=== PATIENT | female | born 1930 | race Caucasian/White ===

== ENCOUNTER 2016-06-10 15:06 | Observation (INO) | payer MEDICARE, OTHER ==
[~2016-06-10] VITALS: Ht 154.9 cm; Wt 65.0 kg
[~2016-06-10 15:06] MED LIST: ASPI325T PO; CERTTAB6 PO; ROBISYP6 PO; [UNRECOGNIZED DRUG - CODE] PO
--- NOTE | 2016-06-10 15:18 | PD ---
HPI Chief Complaint: dementia, left lower extremity pain Time Seen by Provider: 15:18 Travel History International Travel<30 days: No Contact w/Intl Traveler<30days: No Traveled to known affect area: No History of Present Illness HPI 85-year-old female was brought in from the correction with history of left lower extremity pain sudden onset. There is a questionable fall history. Patient has significant dementia where she is unable to give any reliable history. As per the correction note the son was called who insisted that patient should be brought to the emergency room to be checked out. By the time paramedics arrived patient had calmed down and would not really complaining of anything. In the ER she seems quite comfortable as well. Vital signs are stable. [facility] Past Medical History Narrative Medical List of her past medical, surgical, social and family history was reviewed from the nursing note. Blood Disorders: No Anxiety: No Depression: Yes Cancer: No Cardiovascular Problems: No Dementia: Yes Diminished Hearing: No Endocrine: No Genitourinary: Yes (Renal insufficiency.) Immune Disorder: No Musculoskeletal: Yes (History of Generalized weakness, History of falls.) Neurologic: Yes (Dementia, Multiple Sclerosis.) Psychiatric: Yes (Depression.) Reproductive: No Respiratory: Yes (Smokes) : 3 Para: 3 Past Surgical History Appendectomy: Yes Other Surgery: Yes (Appendectomy.) Social History Alcohol Use: Yes (OCC) Tobacco Use: Yes (OCC. WHEN SHE CAN GET THEM) Substance Use: No Allergies-Medications (Allergen,Severity, Reaction): Coded Allergies: Aricept (Verified Allergy, Severe, 06/10/16) Nonsteroidal Anti-Inflammatory Agts (Verified Allergy, Unknown, 06/10/16) Comments List of her allergies reviewed from the nursing note. Reported Meds & Prescriptions Reported Meds & Active Scripts Active Reported K-Tab (Potassium Chloride) 20 Meq Tab 20 Meq PO DAILY Lasix (Furosemide) 20 Mg Tab 20 Mg PO BID Ferrous Sulfate 325 Mg Tab 325 Mg PO BID Poly-Iron 150 Forte (Iron Polysaccharide [id number]) 150-25MG-1 Mcg Cap 1 Cap PO DAILY Levothyroxine (Levothyroxine Sodium) 25 Mcg Tab 25 Mcg PO DAILY Galantamine (Galantamine Hydrobromide) 12 Mg Tab 12 Mg PO BID Narrative Medication List of her home medications reviewed from the nursing note. Review of Systems ROS Limitations: Poor Historian Except as stated in HPI: all other systems reviewed are Neg Physical Exam Exam Limitations: Poor Historian Narrative GENERAL: Awake, dementia, elderly SKIN: Warm and dry. HEAD: Atraumatic. Normocephalic. EYES: Pupils equal and round. No scleral icterus. No injection or drainage. ENT: No nasal bleeding or discharge. Mucous membranes pink and moist. NECK: Trachea midline. No JVD. CARDIOVASCULAR: Regular rate and rhythm. No murmur appreciated. RESPIRATORY: No accessory muscle use. Clear to auscultation. Breath sounds equal bilaterally. GASTROINTESTINAL: Abdomen soft, non-tender, nondistended. Hepatic and splenic margins not palpable. MUSCULOSKELETAL: No obvious deformities. No clubbing. No cyanosis. No edema. Decreased range of motion at the left knee and hip joint. No obvious deformity , crepitus or swelling NEUROLOGICAL: Awake and dementia. No obvious cranial nerve deficits. Motor grossly within normal limits. Normal speech. PSYCHIATRIC: Appropriate mood and affect; insight and judgment normal. Data Data Last Documented VS Orders Electrocardiogram (06/10/16 15:19) Complete Blood Count With Diff (06/10/16 15:19) Comprehensive Metabolic Panel (06/10/16 15:19) Creatine Kinase (Cpk) (06/10/16 15:19) Prothrombin Time / Inr (Pt) (06/10/16 15:19) Troponin I (06/10/16 15:19) Thyroid Stimulating Hormone (06/10/16 15:19) Urinalysis - C+S If Indicated (06/10/16 15:19) Chest, Single Ap (06/10/16 15:19) Blood Glucose (06/10/16 15:19) Ecg Monitoring (06/10/16 15:19) Iv Access Insert/Monitor (06/10/16 15:19) Oximetry (06/10/16 15:19) Sodium Chloride 0.9% Flush (Ns Flush) (06/10/16 15:30) Hip, Uni(Ap&Lat) W Ap Pelvis (06/10/16 ) Knee, Complete (4vws) (06/10/16 ) Ct Brain W/O Iv Contrast(Rout) (06/10/16 ) ^ Straight Catheter (06/10/16 15:19) CKMB (06/10/16 16:00) CKMB% (06/10/16 16:00) Us Leg Venous Doppler (06/10/16 18:21) Sodium Chlorid 0.9% 500 Ml Inj (Ns 500 M (06/10/16 18:30) Admit Order (Ed Use Only) (06/10/16 ) Labs MDM Medical Decision Making Medical Screen Exam Complete: Yes Emergency Medical Condition: Yes Medical Record Reviewed: Yes Interpretation(s) Twelve-lead EKG was reviewed by me. Normal sinus rhythm, normal axis, nonspecific ST-T wave changes. Heart rate of 86 bpm. Differential Diagnosis Hip fracture, knee fracture, dementia, UTI Narrative Course 5:29 PM x-ray and CT scan were within normal limits. CBC shows some leukocytosis. UA is within normal limit. Chemistry is pending. Case has been signed over to the oncoming ER physician. In my opinion if the chemistry is within normal limit patient can be discharged back to the correction. Procedures EKG Prior to Arrival: Yes Brett James MD Jun 10, 2016 15:18 Urine Nitrite NEG Urine Bilirubin NEG Urine Urobilinogen LESS THAN 2.0 MG/DL Urine Leukocyte Esterase NEG Urine RBC 1 /hpf Urine WBC 1 /hpf Urine Squamous Epithelial <1 /hpf Cells Urine Hyaline Casts 4 /lpf Microscopic Urinalysis Comment CATH-CULT NOT IND White Blood Count 13.8 TH/MM3 Red Blood Count 4.27 MIL/MM3 Hemoglobin 10.0 GM/DL Hematocrit 31.9 % Mean Corpuscular Volume 74.9 FL Mean Corpuscular Hemoglobin 23.5 PG Mean Corpuscular Hemoglobin 31.4 % Concent Red Cell Distribution Width 20.9 % Platelet Count 370 TH/MM3 Mean Platelet Volume 7.9 FL Neutrophils (%) (Auto) 74.5 % Lymphocytes (%) (Auto) 15.1 % Monocytes (%) (Auto) 9.9 % Eosinophils (%) (Auto) 0.2 % Basophils (%) (Auto) 0.3 % Neutrophils # (Auto) 10.3 TH/MM3 Lymphocytes # (Auto) 2.1 TH/MM3 Monocytes # (Auto) 1.4 TH/MM3 Eosinophils # (Auto) 0.0 TH/MM3 Basophils # (Auto) 0.0 TH/MM3 CBC Comment AUTO DIFF Differential Comment AUTO DIFF CONFIRMED Platelet Estimate NORMAL Platelet Morphology Comment NORMAL Target Cells 1+ Ovalocytes 1+ Prothrombin Time 10.7 SEC Prothromb Time International 1.0 RATIO Ratio MDM Medical Decision Making Medical Screen Exam Complete: Yes Emergency Medical Condition: Yes Medical Record Reviewed: Yes Interpretation(s) Twelve-lead EKG was reviewed by me. Normal sinus rhythm, normal axis, nonspecific ST-T wave changes. Heart rate of 86 bpm. Differential Diagnosis Hip fracture, knee fracture, dementia, UTI Narrative Course 5:29 PM x-ray and CT scan were within normal limits. CBC shows some leukocytosis. UA is within normal limit. Chemistry is pending. Case has been signed over to the oncoming ER physician. In my opinion if the chemistries within normal limit patient can be discharged back to the correction. Procedures EKG Prior to Arrival: Yes Brett James MD Jun 10, 2016 15:18
[2016-06-10] MEDS ORDERED: SODIUM CHLORIDE 0.9% FLUSH 5 ML FLUSH IVF PRN (15:30)
[2016-06-10 15:33] VITALS: BP 145/69; PULSE 90; RESP 16; RESP 18; TEMP 98.1; O2SAT 97
[2016-06-10] MEDS ORDERED: GALA12TA PO (15:47)
[2016-06-10] MEDS ORDERED: FURO1TAB62 PO (15:47)
[2016-06-10] MEDS ORDERED: FERR325T PO (15:47)
[2016-06-10] MEDS ORDERED: POTA1TAB4 PO (15:47)
[2016-06-10] MEDS ORDERED: LEVO25TA4 PO (15:47)
[2016-06-10] MEDS ORDERED: POLY150C2 PO (15:47)
--- NOTE | 2016-06-10 16:00 | RADRPT ---
EXAM DATE/TIME: 06/10/2016 15:43 [facility] COMPARISON: No previous studies available for comparison. INDICATIONS : Left hip pain, no known trauma per [facility] MEDICAL HISTORY : dementia SURGICAL HISTORY : None. ENCOUNTER: Initial ACUITY: 1 day PAIN SCORE: Non-responsive. LOCATION: Left hip FINDINGS: Examination of the left hip was performed with AP Pelvis. The primary and secondary trabecular patte rn of the femoral neck is intact. The hip joint is of normal width without significant sclerosis or bony hypertrophy. The acetabulum is grossly intact. CONCLUSION: Unremarkable examination of the left hip. Cem Patton MD on June 10, 2016 at 15:59 Board Certified Radiologist. This report was verified electronically.
--- NOTE | 2016-06-10 16:01 | RADRPT ---
EXAM DATE/TIME: 06/10/2016 15:47 [facility] COMPARISON: No previous studies available for comparison. INDICATIONS : Left knee pain, no known trauma per [facility] MEDICAL HISTORY : dementia SURGICAL HISTORY : None. ENCOUNTER: Initial ACUITY: 1 day PAIN SCORE: Non-responsive. LOCATION: Left knee FINDINGS: Four view examination of the left knee demonstrates no evidence of fracture or dislocation. Bony min eralization is normal. Extensive chondrocalcinosis. The articular surfaces are intact. The suprapate llar soft tissues have a normal configuration. CONCLUSION: Extensive chondrocalcinosis of the knee with small joint effusion. Cem Patton MD on June 10, 2016 at 15:59 Board Certified Radiologist. This report was verified electronically.
--- NOTE | 2016-06-10 16:03 | RADRPT ---
EXAM DATE/TIME: 06/10/2016 15:43 [facility] COMPARISON: CHEST SINGLE AP, October 22, 2014, 22:49. INDICATIONS : Chest pain, no known trauma per [facility] MEDICAL HISTORY : dementia SURGICAL HISTORY : None. ENCOUNTER: Initial ACUITY: 1 day PAIN SCORE: Non-responsive. LOCATION: Bilateral chest FINDINGS: A single view of the chest demonstrates the lungs to be symmetrically aerated without evidence of mas s, infiltrate or effusion. The cardiomediastinal contours are unremarkable. Osseous structures are intact. CONCLUSION: Normal examination. Cem Patton MD on June 10, 2016 at 16:01 Board Certified Radiologist. This report was verified electronically.
--- NOTE | 2016-06-10 16:16 | RADRPT ---
EXAM DATE/TIME: 06/10/2016 15:43 [facility] COMPARISON: No previous studies available for comparison. INDICATIONS : Possible fall today with altered mental status. RADIATION DOSE: 56.35 CTDIvol (mGy) MEDICAL HISTORY : Dementia. Renal insufficiency, chronic. SURGICAL HISTORY : Appendectomy. ENCOUNTER: Initial ACUITY: 1 day PAIN SCALE: 5/10 LOCATION: cranial TECHNIQUE: Multiple contiguous axial images were obtained of the head. Using automated exposure control and adj ustment of the mA and/or kV according to patient size, radiation dose was kept as low as reasonably a chievable to obtain optimal diagnostic quality images. FINDINGS: There is marked central and cortical atrophy with dilatation of ventricular and sulcal spaces. The ve ntricles are slightly more prominent than they were in January. There is no parenchymal hemorrhage, acute infarction or mass lesion identified. There are no extra-axial fluid collections appreciated. The posterior fossa is unremarkable with midline fourth ventricle. The portion of the orbits and pa ranasal sinuses visualized are unremarkable. CONCLUSION: Marked atrophy with ventricular enlargement. The ventricles are slightly larger than they were on Jan. Marked CSF prominence. Cem Patton MD on June 10, 2016 at 16:08 Board Certified Radiologist. This report was verified electronically.
[2016-06-10 16:40] LABS: AUTOMATED NEUTROPHIL # 10.3 TH/MM3 (1.8-7.7); BASOPHIL % 0.3 % (0.0-2.0); EOSINOPHIL % 0.2 % (0.0-4.0); HEMATOCRIT 31.9 % (35.0-46.0); LYMPH % 15.1 % (9.0-44.0); LYMPHOCYTE # 2.1 TH/MM3 (1.0-4.8); MEAN CELL VOLUME 74.9 FL (80.0-100.0); MEAN CORPUSCULAR HEMOGLOBIN 23.5 PG (27.0-34.0); MEAN CORPUSCULAR HGB CONC 31.4 % (32.0-36.0); MONO % 9.9 % (0.0-8.0); NEUT % 74.5 % (16.0-70.0); PLATELET COUNT 370 TH/MM3 (150-450); RED BLOOD COUNT 4.27 MIL/MM3 (4.00-5.30); RED CELL DISTRIBUTION WIDTH 20.9 % (11.6-17.2); WHITE BLOOD COUNT 13.8 TH/MM3 (4.0-11.0)
[2016-06-10 16:46] LABS: HEMO FLAGS AUTO DIFF
[2016-06-10 16:51] LABS: BLOOD, URINE NEG (NEG); COMMENT (UR) CATH-CULT NOT IND; CULTURE IF INDICATED CATH CULTURE NOT IND; GLUCOSE,URINE NEG (NEG); HYALINE CAST, URINE 4 /lpf (RARE); KETONE, URINE NEG (NEG); NITRITE,URINE NEG (NEG); PH, URINE 5.5 (5.0-8.5); SQUAMOUS EPITHELIAL CELL URINE <1 /hpf (0-5); URINE COLOR YELLOW (YELLW/STRAW)
[2016-06-10 16:58] LABS: PROTHROMBIN TIME - PATIENT 10.7 SEC (9.8-11.6)
[2016-06-10 17:13] LABS: OVALOCYTES 1+ (NORMAL); PLATELET ESTIMATE SMEAR NORMAL (NORMAL); PLATELET MORPHOLOGY NORMAL (NORMAL); TARGET CELLS 1+ (NORMAL)
[2016-06-10 17:14] LABS: SCAN/DIFF AUTO DIFF CONFIRMED
[2016-06-10 17:28] LABS: ALKALINE PHOSPHATASE 150 U/L (45-117); ALT (GPT) 39 U/L (10-53); ANION GAP 9 MEQ/L (5-15); AST (GOT) 68 U/L (15-37); BICARBONATE 25.9 MEQ/L (21.0-32.0); BLOOD UREA NITROGEN 28 MG/DL (7-18); CHLORIDE 102 MEQ/L (98-107); CREATINE KINASE 936 U/L (26-192); GLOMERULAR FILTRATION RATE 41 ML/MIN (>89); SODIUM (NA) 137 MEQ/L (136-145); TOTAL BILIRUBIN ADULT 0.7 MG/DL (0.2-1.0)
[2016-06-10 17:30] LABS: POTASSIUM 4.3 MEQ/L (3.5-5.1)
[2016-06-10 17:42] LABS: CKMB 8.2 NG/ML (0.5-3.6)
[2016-06-10 18:00] VITALS: BP 132/55; PULSE 18; RESP 15; O2SAT 95
--- NOTE | 2016-06-10 18:21 | PD ---
Data Data Last Documented VS Vital Signs Date Time Temp Pulse Resp B/P Pulse Ox O2 Delivery O2 Flow Rate FiO2 06/10/16 15:33 98.1 90 18 145/69 97 Room Air Orders Electrocardiogram (06/10/16 15:19) Complete Blood Count With Diff (06/10/16 15:19) Comprehensive Metabolic Panel (06/10/16 15:19) Creatine Kinase (Cpk) (06/10/16 15:19) Prothrombin Time / Inr (Pt) (06/10/16 15:19) Troponin I (06/10/16 15:19) Thyroid Stimulating Hormone (06/10/16 15:19) Urinalysis - C+S If Indicated (06/10/16 15:19) Chest, Single Ap (06/10/16 15:19) Blood Glucose (06/10/16 15:19) Ecg Monitoring (06/10/16 15:19) Iv Access Insert/Monitor (06/10/16 15:19) Oximetry (06/10/16 15:19) Sodium Chloride 0.9% Flush (Ns Flush) (06/10/16 15:30) Hip, Uni(Ap&Lat) W Ap Pelvis (06/10/16 ) Knee, Complete (4vws) (06/10/16 ) Ct Brain W/O Iv Contrast(Rout) (06/10/16 ) ^ Straight Catheter (06/10/16 15:19) CKMB (06/10/16 16:00) CKMB% (06/10/16 16:00) Labs Laboratory Tests Test 06/10/16 06/10/16 14:05 16:00 Urine Color YELLOW Urine Turbidity CLEAR Urine pH 5.5 Urine Specific [place] 1.014 Urine Protein NEG mg/dL Urine Glucose (UA) NEG mg/dL Urine Ketones NEG mg/dL Urine Occult Blood NEG Urine Nitrite NEG Urine Bilirubin NEG Urine Urobilinogen LESS THAN 2.0 MG/DL Urine Leukocyte Esterase NEG Urine RBC 1 /hpf Urine WBC 1 /hpf Urine Squamous Epithelial <1 /hpf Cells Urine Hyaline Casts 4 /lpf Microscopic Urinalysis Comment CATH-CULT NOT IND White Blood Count 13.8 TH/MM3 Red Blood Count 4.27 MIL/MM3 Hemoglobin 10.0 GM/DL Hematocrit 31.9 % Mean Corpuscular Volume 74.9 FL Mean Corpuscular Hemoglobin 23.5 PG Mean Corpuscular Hemoglobin 31.4 % Concent Red Cell Distribution Width 20.9 % Platelet Count 370 TH/MM3 Mean Platelet Volume 7.9 FL Neutrophils (%) (Auto) 74.5 % Lymphocytes (%) (Auto) 15.1 % Monocytes (%) (Auto) 9.9 % Eosinophils (%) (Auto) 0.2 % Basophils (%) (Auto) 0.3 % Neutrophils # (Auto) 10.3 TH/MM3 Lymphocytes # (Auto) 2.1 TH/MM3 Monocytes # (Auto) 1.4 TH/MM3 Eosinophils # (Auto) 0.0 TH/MM3 Basophils # (Auto) 0.0 TH/MM3 CBC Comment AUTO DIFF Differential Comment AUTO DIFF CONFIRMED Platelet Estimate NORMAL Platelet Morphology Comment NORMAL Target Cells 1+ Ovalocytes 1+ Prothrombin Time 10.7 SEC Prothromb Time International 1.0 RATIO Ratio Sodium Level 137 MEQ/L Potassium Level 4.3 MEQ/L Chloride Level 102 MEQ/L Carbon Dioxide Level 25.9 MEQ/L Anion Gap 9 MEQ/L Blood Urea Nitrogen 28 MG/DL Creatinine 1.25 MG/DL Estimat Glomerular Filtration 41 ML/MIN Rate Random Glucose 94 MG/DL Calcium Level 8.7 MG/DL Total Bilirubin 0.7 MG/DL Aspartate Amino Transf 68 U/L (AST/SGOT) Alanine Aminotransferase 39 U/L (ALT/SGPT) Alkaline Phosphatase 150 U/L Total Creatine Kinase 936 U/L Creatine Kinase MB 8.2 NG/ML Creatine Kinase MB % 0.9 % Troponin I LESS THAN 0.02 NG/ML Total Protein 8.0 GM/DL Albumin 2.8 GM/DL Thyroid Stimulating Hormone 5.220 uIU/ML 3rd Gen [facility] Supervised Visit with TIERA: No Narrative Course Patient care assumed from Dr. James at 1930, patient is an 85-year-old female with a history of dementia use complaining of right lower extremity pain. On arrival to the emergency department the pain had apparently resolved. Patient on my evaluation states her right leg hurts a little bit but she is unable to identify exactly where. She was offered pain medicine and declined. Patient has had x-ray of her right hip right knee which other than the right knee effusion shows no acute abnormality. On physical exam her soft compartments are soft pulse motor and sensory intact and there is no obvious skin breakdown. Patient did have a wound dressing on her right lower extremity but I see no pressure ulcer developing at this time. Labs reviewed and a CK is just under 1000 with a creatinine of 1.2. Patient fairly demented. Her son is here with her and discussed the results and recommendations for admission for IV fluid resuscitation and monitoring of kidney levels and he is agreeable. Diagnosis Primary Impression: Rhabdomyolysis Qualified Code: M62.82 - Non-traumatic rhabdomyolysis Additional Impressions: Right leg pain Dementia Admitting Information Admitting Physician Requests: Observation Condition: Stable [place] Valerio MD Jun 10, 2016 18:21
[2016-06-10] MEDS ORDERED: SODIUM CHLORID 0.9% 500 ML INJ 500 ML IV ONE (18:30)
[2016-06-10 19:00] VITALS: BP 110/54; PULSE 95; RESP 15; RESP 16; O2SAT 96; O2SAT 98
[2016-06-10] MEDS ORDERED: NALOXONE HCL 0.4 MG/ML AMP IV PRN (19:45)
[2016-06-10] MEDS ORDERED: SODIUM CHLORIDE 0.9% FLUSH 5 ML FLUSH FLUSH PRN (19:45)
--- NOTE | 2016-06-10 20:51 | RADRPT ---
EXAM DATE/TIME: 06/10/2016 19:48 [facility] COMPARISON: No previous studies available for comparison. INDICATIONS : Right leg swelling. MEDICAL HISTORY : Congestive heart failure. Alzheimer's. Dementia. SURGICAL HISTORY : Appendectomy. ENCOUNTER: Initial ACUITY: 1 day PAIN SCORE: 10/10 LOCATION: Right leg. TECHNIQUE: Venous ultrasound of the leg was performed from the inguinal ligament to the proximal calf. Real-medina e, color Doppler and spectral tracing, compression and augmentation techniques were used. FINDINGS: There is normal compressibility of the deep venous system from the inguinal region to the proximal ca lf. No echogenic clot is seen in the lumen of the common femoral, femoral, popliteal, and posterior tibial veins. There is a normal response of the venous system to proximal and distal augmentation an d respiration. Fluid collection is identified in the right popliteal fossa measuring 2.3 x 1.2 x 0.8 cm. CONCLUSION: No evidence DVT. Hall cyst. Jose Suarez MD on June 10, 2016 at 20:49 Board Certified Radiologist. This report was verified electronically.
[2016-06-10] MEDS: SODIUM CHLORIDE 0.9% FLUSH 5 ML FLUSH FLUSH SCH (21:05)
[2016-06-10 23:36] VITALS: BP 131/59; PULSE 93; RESP 18; TEMP 97.1; O2SAT 93
--- NOTE | 2016-06-11 00:15 | HHI.HP ---
[facility] Cesar Moe M.D. Admission Diagnosis Rhabdomyolysis. Diagnoses: Chief Complaint: fall at home Travel History International Travel<30 Days: No Contact w/Intl Traveler <30 Da: No Traveled to Known Affected Are: No History of Present Illness History taken form Patient and ED physician. 85 y/o female presented from a local custodial after a fall at the nursing facility. Patient has dementia and is only oriented to self, does not know she is in the hospital, or the year she was born. She states she does not remember falling. She denies all questions, even regarding medical history. ROS is limited due to dementia. According to the EMR patient has a history of dementia, MS, hypothyroidism, CKD, and depression. Son is POA is not present at bedside. Last admission in November 04 she patient was a DO NOT RESUSCITATE, will need to clarify with POA, there was no state DO NOT RESUSCITATE present from the nursing facility. Review of Systems ROS Limitations: Poor Historian (dementia) Past Family Social History Past Medical History Dementia Multiple sclerosis CKD Depression Hypothyroidism Past Surgical History Appendectomy Reported Medications Reported Meds & Active Scripts Active Reported K-Tab (Potassium Chloride) 20 Meq Tab 20 Meq PO DAILY Lasix (Furosemide) 20 Mg Tab 20 Mg PO BID Ferrous Sulfate 325 Mg Tab 325 Mg PO BID Poly-Iron 150 Forte (Iron Polysaccharide [id number]) 150-25MG-1 Mcg Cap 1 Cap PO DAILY Levothyroxine (Levothyroxine Sodium) 25 Mcg Tab 25 Mcg PO DAILY Galantamine (Galantamine Hydrobromide) 12 Mg Tab 12 Mg PO BID Allergies: Coded Allergies: Aricept (Verified Allergy, Severe, 06/10/16) Nonsteroidal Anti-Inflammatory Agts (Verified Allergy, Unknown, 06/10/16) Active Ordered Medications Current Medications Medications (Trade) Dose Ordered Sig/Karen Route Start Time Stop Time Status Last Admin (NS Flush) 2 ml UNSCH PRN IVF 06/10/16 15:30 06/10/16 19:18 (NS Flush) 2 ml UNSCH PRN FLUSH 06/10/16 19:45 (NS Flush) 2 ml BID FLUSH 06/10/16 21:00 06/10/16 21:05 (Narcan Inj) 0.4 mg UNSCH PRN IV 06/10/16 19:45 Family History Patient does not know family history Social History Per EMR: Patient does not smoke or drink Physical Exam Vital Signs Vital Signs Date Time Temp Pulse Resp B/P Pulse Ox O2 Delivery O2 Flow Rate FiO2 06/10/16 23:36 97.1 93 18 131/59 93 06/10/16 19:00 90 16 06/10/16 19:00 16 98 Room Air 06/10/16 19:00 95 15 110/54 96 Room Air 06/10/16 18:00 18 15 132/55 95 Room Air 06/10/16 15:33 98.1 90 18 145/69 97 Room Air 06/10/16 15:33 98.1 90 18 145/69 97 Room Air 06/10/16 15:33 98.1 90 16 145/69 97 Physical Exam GENERAL: This is a well-nourished, well-developed patient, in no apparent distress. Poor historian due to dementia SKIN: No rashes, ecchymoses or lesions. Cool and dry. HEAD: Atraumatic. Normocephalic. EYES: Pupils equal round and reactive. Extraocular motions intact. ENT: Nose without bleeding, purulent drainage or septal hematoma. Airway patent. NECK: Trachea midline. No JVD or lymphadenopathy CARDIOVASCULAR: Regular rate and rhythm without murmurs, gallops, or rubs. RESPIRATORY: Clear to auscultation. Breath sounds equal bilaterally. No wheezes , rales, or rhonchi. GASTROINTESTINAL: Abdomen soft, non-tender, nondistended. No hepato-splenomegaly , or palpable masses. No guarding. MUSCULOSKELETAL: Extremities without clubbing, cyanosis, or edema. No joint tenderness, effusion, or edema noted. No calf tenderness. NEUROLOGICAL: Awake and confused Motor and sensory grossly within normal limits. Normal speech. Laboratory Laboratory Tests Test 06/10/16 06/10/16 14:05 16:00 Urine Color YELLOW Urine Turbidity CLEAR Urine pH 5.5 Urine Specific [place] 1.014 Urine Protein NEG Urine Glucose (UA) NEG Urine Ketones NEG Urine Occult Blood NEG Urine Nitrite NEG Urine Bilirubin NEG Urine Urobilinogen LESS THAN 2.0 Urine Leukocyte Esterase NEG Urine RBC 1 Urine WBC 1 Urine Squamous Epithelial <1 Cells Urine Hyaline Casts 4 Microscopic Urinalysis Comment CATH-CULT NOT IND White Blood Count 13.8 Red Blood Count 4.27 Hemoglobin 10.0 Hematocrit 31.9 Mean Corpuscular Volume 74.9 Mean Corpuscular Hemoglobin 23.5 Mean Corpuscular Hemoglobin 31.4 Concent Red Cell Distribution Width 20.9 Platelet Count 370 Mean Platelet Volume 7.9 Neutrophils (%) (Auto) 74.5 Lymphocytes (%) (Auto) 15.1 Monocytes (%) (Auto) 9.9 Eosinophils (%) (Auto) 0.2 Basophils (%) (Auto) 0.3 Neutrophils # (Auto) 10.3 Lymphocytes # (Auto) 2.1 Monocytes # (Auto) 1.4 Eosinophils # (Auto) 0.0 Basophils # (Auto) 0.0 CBC Comment AUTO DIFF Differential Comment AUTO DIFF CONFIRMED Platelet Estimate NORMAL Platelet Morphology Comment NORMAL Target Cells 1+ Ovalocytes 1+ Prothrombin Time 10.7 Prothromb Time International 1.0 Ratio Sodium Level 137 Potassium Level 4.3 Chloride Level 102 Carbon Dioxide Level 25.9 Anion Gap 9 Blood Urea Nitrogen 28 Creatinine 1.25 Estimat Glomerular Filtration 41 Rate Random Glucose 94 Calcium Level 8.7 Total Bilirubin 0.7 Aspartate Amino Transf 68 (AST/SGOT) Alanine Aminotransferase 39 (ALT/SGPT) Alkaline Phosphatase 150 Total Creatine Kinase 936 Creatine Kinase MB 8.2 Creatine Kinase MB % 0.9 Troponin I LESS THAN 0.02 Total Protein 8.0 Albumin 2.8 Free Thyroxine 1.17 Thyroid Stimulating Hormone 5.220 3rd Gen Result Diagram: 06/10/16 1600 06/10/16 1600 Imaging Last Impressions Lower Extremity Ultrasound 06/10/16 1821 Signed Impressions: Service Date/Time: Friday, June 10, 2016 19:48 - CONCLUSION: No evidence DVT. Hall cyst. Jose Suarez MD Chest X-Ray 06/10/16 1519 Signed Impressions: Service Date/Time: Friday, June 10, 2016 15:43 - CONCLUSION: Normal examination. Cem Patton MD Knee X-Ray 06/10/16 0000 Signed Impressions: Service Date/Time: Friday, June 10, 2016 15:47 - CONCLUSION: Extensive chondrocalcinosis of the knee with small joint effusion. Cem Patton MD Hip and Pelvis X-Ray 06/10/16 0000 Signed Impressions: Service Date/Time: Friday, June 10, 2016 15:43 - CONCLUSION: Unremarkable examination of the left hip. Cem Patton MD Head CT 06/10/16 0000 Signed Impressions: Service Date/Time: Friday, June 10, 2016 15:43 - CONCLUSION: Marked atrophy with ventricular enlargement. The ventricles are slightly larger than they were on January 2016. Marked CSF prominence. Cem Patton MD Assessment and Plan Problem List: (1) Rhabdomyolysis ICD Code: M62.82 Status: Acute (2) ANTONIO (acute kidney injury) ICD Code: N17.9 Status: Acute (3) Dementia ICD Code: F03.90 Status: Chronic Assessment and Plan 85-year-old female with a history of dementia, CK 80, hypothyroidism, depression and multiple sclerosis presented with: Rhabdomyolysis Labs. CPK 936 -CPK in a.m. -NS bolus given in the ED, continue IVF ANTONIO Labs: Creatinine 1.2, baseline 0.7 -Continue IVF -Trend BMP -Hold Lasix for now Dementia, chronic -Continue home medications galantamine Hypothyroidism, chronic Labs TSH 5.2, T4 1.7 -Continue home medications levothyroxine DVT prophylaxis: SCDs Written by Nena STEARNS, acting as scribe for Dr. Gomez on 06/11/16 at 0143. The documentation accurately reflects the work performed [id number] and decisions made by me and the physician Dr Gomez on 06/11/16. The documentation accurately reflects the work performed [id number] by me on at 0143 Discussed Condition With Patient and ED physician Problem Qualifiers (1) Rhabdomyolysis: Qualified Code: M62.82 - Non-traumatic rhabdomyolysis Nena Mccray Jun 11, 2016 00:15 Michela Gomez MD Jun 12, 2016 08:20
[2016-06-11 03:11] VITALS: BP 129/60; PULSE 96; RESP 19; TEMP 99.4; O2SAT 90
[2016-06-11] MEDS: SODIUM CHLOR 0.9% 1000 ML INJ 1,000 ML IV SCH ×2 (03:13→13:55)
[2016-06-11 05:34] LABS: AUTOMATED NEUTROPHIL # 6.7 TH/MM3 (1.8-7.7); BASOPHIL % 0.2 % (0.0-2.0); EOSINOPHIL # 0.1 TH/MM3 (0-0.4); EOSINOPHIL % 0.7 % (0.0-4.0); HEMATOCRIT 27.6 % (35.0-46.0); LYMPH % 18.5 % (9.0-44.0); LYMPHOCYTE # 1.8 TH/MM3 (1.0-4.8); MEAN CELL VOLUME 72.9 FL (80.0-100.0); MEAN CORPUSCULAR HEMOGLOBIN 23.4 PG (27.0-34.0); MEAN CORPUSCULAR HGB CONC 32.1 % (32.0-36.0); MONO % 11.7 % (0.0-8.0); NEUT % 68.9 % (16.0-70.0); PLATELET COUNT 356 TH/MM3 (150-450); RED BLOOD COUNT 3.79 MIL/MM3 (4.00-5.30); RED CELL DISTRIBUTION WIDTH 20.2 % (11.6-17.2); WHITE BLOOD COUNT 9.8 TH/MM3 (4.0-11.0)
[2016-06-11 05:43] LABS: HEMO FLAGS AUTO DIFF
[2016-06-11 05:57] LABS: POTASSIUM 3.3 MEQ/L (3.5-5.1)
[2016-06-11] MEDS ORDERED: LEVOTHYROXINE SODIUM 25 MCG TAB PO SCH (06:00)
[2016-06-11] MEDS ORDERED: POTASSIUM CHLORIDE 10 MEQ CONTROLLED RELEASE TAB PO ONE (06:15)
[2016-06-11 07:27] LABS: KERATOCYTES OCC (NORMAL); SCAN/DIFF AUTO DIFF CONFIRMED
[2016-06-11 07:32] VITALS: BP 140/64; PULSE 93; RESP 20; TEMP 100.1; O2SAT 90
[2016-06-11 09:00] VITALS: PULSE 92
[2016-06-11] MEDS ORDERED: FERROUS SULFATE 325 MG (65 MG ELEMENTAL IRON) TAB PO SCH (09:00)
[2016-06-11] MEDS ORDERED: [UNRECOGNIZED DRUG - OTHER] PO SCH (09:00)
[2016-06-11] MEDS ORDERED: GALANTAMINE HYDROBROMIDE 4 MG TAB PO SCH (09:00)
[2016-06-11] MEDS: SODIUM CHLORIDE 0.9% FLUSH 5 ML FLUSH FLUSH SCH (09:00)
[2016-06-11] MEDS ORDERED: POTASSIUM CHLORIDE 20 MEQ CONTROLLED RELEASE TAB PO SCH (09:00)
[2016-06-11 09:01] LABS: CKMB 2.6 NG/ML (0.5-3.6)
--- NOTE | 2016-06-11 09:30 | HHI.PR ---
Subjective Remarks Follow-up for fall. The patient is oriented to self, but otherwise disoriented. She does not recall how she got to the hospital. She does not recall falling. She states that she lives here in the hospital, doesn't know where she stays. She denies any headache or pain at this time. Objective Vitals Vital Signs Date Time Temp Pulse Resp B/P Pulse Ox O2 Delivery O2 Flow Rate FiO2 06/11/16 07:32 100.1 93 20 140/64 90 06/11/16 03:11 99.4 96 19 129/60 90 06/10/16 23:36 97.1 93 18 131/59 93 06/10/16 19:00 90 16 06/10/16 19:00 16 98 Room Air 06/10/16 19:00 95 15 110/54 96 Room Air 06/10/16 18:00 18 15 132/55 95 Room Air 06/10/16 15:33 98.1 90 18 145/69 97 Room Air 06/10/16 15:33 98.1 90 18 145/69 97 Room Air 06/10/16 15:33 98.1 90 16 145/69 97 Result Diagram: 06/11/16 0450 06/11/16 0450 Imaging Last Impressions Lower Extremity Ultrasound 06/10/16 1821 Signed Impressions: Service Date/Time: Friday, June 10, 2016 19:48 - CONCLUSION: No evidence DVT. Hall cyst. Jose Suarez MD Chest X-Ray 06/10/16 1519 Signed Impressions: Service Date/Time: Friday, June 10, 2016 15:43 - CONCLUSION: Normal examination. Cem Patton MD Knee X-Ray 06/10/16 0000 Signed Impressions: Service Date/Time: Friday, June 10, 2016 15:47 - CONCLUSION: Extensive chondrocalcinosis of the knee with small joint effusion. Cem Patton MD Hip and Pelvis X-Ray 06/10/16 0000 Signed Impressions: Service Date/Time: Friday, June 10, 2016 15:43 - CONCLUSION: Unremarkable examination of the left hip. Cem Patton MD Head CT 06/10/16 0000 Signed Impressions: Service Date/Time: Friday, June 10, 2016 15:43 - CONCLUSION: Marked atrophy with ventricular enlargement. The ventricles are slightly larger than they were on January 2016. Marked CSF prominence. Cem Patton MD Objective Remarks GENERAL: Well-developed well-nourished. In no acute distress. SKIN: Warm and dry. No lesions noted. HEENT: Normocephalic. Pupils equal and round. Mucous membranes pink and moist. CARDIOVASCULAR: Regular rate and rhythm. No murmur appreciated. RESPIRATORY: No accessory muscle use. Clear to auscultation. Breath sounds equal bilaterally. GASTROINTESTINAL: Abdomen soft, non-tender, nondistended. Bowel sounds x4. MUSCULOSKELETAL: No obvious deformities. No clubbing or cyanosis. No edema. NEUROLOGICAL: Awake and alert. No focal neurological deficits. Moves upper and lower extremities spontaneously. Normal speech. PSYCHIATRIC: Pleasantly confused mood and affect; insight and judgment limited. A/P Problem List: (1) Rhabdomyolysis ICD Code: M62.82 Status: Acute (2) ANTONIO (acute kidney injury) ICD Code: N17.9 Status: Acute (3) Dementia ICD Code: F03.90 Status: Chronic Assessment and Plan 85-year-old female with a history of dementia, CK 80, hypothyroidism, depression and multiple sclerosis presented with: Rhabdomyolysis Labs reviewed: CPK 936, improved to 481 overnight -Received IVF ANTONIO Labs: Creatinine 1.25, improved to 1.02 overnight with IV -Held Lasix for now Dementia, chronic -Continue home medications galantamine Hypothyroidism, chronic Labs: TSH slightly elevated, but T4 within normal limits -Continue home medications levothyroxine -Outpatient PCP follow-up for repeat thyroid function in 4-6 weeks Hypokalemia: Potassium 3.3. Replaced orally. DVT prophylaxis: SCDs Written by Shiv Arteaga, acting as scribe for Dr. Granda on 06/11/16 at 09:30. Discharge Planning Patient with no complains or symptoms from her fall. CPK trending down. Discharge patient back to facility Condition on discharge: Improved Regular Diet as tolerated Regular activity Rx written: None Follow-up with primary care physician Problem Qualifiers (1) Rhabdomyolysis: Qualified Code: M62.82 - Non-traumatic rhabdomyolysis Shiv Arteaga Jun 11, 2016 09:30
[2016-06-11 11:02] VITALS: BP 121/55; PULSE 91; RESP 18; TEMP 99; O2SAT 94
--- NOTE | 2016-06-11 11:16 | EKG ---
Date Performed: 06/10/2016 Time Performed: 15:26:44 PTAGE: 85 years EKG: Sinus rhythm WITH SINUS ARRHYTHMIA NORMAL ECG PREVIOUS TRACING : 10/22/2014 19.35 DOCTOR: Cem Hu Interpretating Date/Time 06/11/2016 11:15:33
== END 2016-06-11 22:06 | disposition home or self-care (01) ==
LOC: NEPA 15:06 → NEDA 18:36 → NEPHCDU 22:14
PROVIDERS: ADMIT Hospitalist; ATTEND Hospitalist
DX: M62.82 Rhabdomyolysis (principal); F03.90 Unspecified dementia, unspecified severity, without behavioral disturbance, psychotic disturbance, mood disturbance, and anxiety; Z91.81 History of falling; G35 Multiple sclerosis; Z79.899 Other long term (current) drug therapy; D72.829 Elevated white blood cell count, unspecified; N18.9 Chronic kidney disease, unspecified; E03.9 Hypothyroidism, unspecified; F32.9 Major depressive disorder, single episode, unspecified; N17.9 Acute kidney failure, unspecified
CPT/HCPCS: 70450; 71010; 73502; 73564; 80048; 80053; 81001; 82550; 82552; 84439; 84443; 84484; 85025; 85610; 93005; 93971; 99285; G0378; J7030; J7040

== ENCOUNTER 2016-07-12 19:01 | Emergency (ER) | payer MEDICARE, OTHER ==
[~2016-07-12] VITALS: Ht 160 cm; Wt 60.0 kg
[~2016-07-12 19:01] MED LIST changes: -ASPI325T PO; -CERTTAB6 PO; +FERR325T PO; +FURO1TAB62 PO; +GALA12TA PO; +LEVO25TA4 PO; +POLY150C2 PO; +POTA1TAB4 PO; -ROBISYP6 PO; -[UNRECOGNIZED DRUG - CODE] PO
[2016-07-12 19:17] VITALS: BP 112/53; PULSE 78; RESP 20; TEMP 97.6; O2SAT 93
--- NOTE | 2016-07-12 19:32 | PD ---
HPI Chief Complaint: GI Complaint Time Seen by Provider: 19:29 Travel History International Travel<30 days: No Contact w/Intl Traveler<30days: No Traveled to known affect area: No History of Present Illness HPI 85-year-old female came to the emergency room brought by EMS with history of abdominal pain. Patient has dementia and she does not know why she is here. She says she has no complaints currently. Vital signs were stable. As per the residential note patient was grabbing her left lower quadrant and crying in pain this afternoon. [facility] Past Medical History Narrative Medical List of her past medical, surgical, social and family history was reviewed from the nursing note. Medical History: Unable to Obtain Alzheimer's Disease: Yes Blood Disorders: No Anxiety: No Depression: Yes Cancer: No Cardiovascular Problems: Yes (CHF) Congestive Heart Failure: Yes Dementia: Yes Diminished Hearing: No Endocrine: No Genitourinary: Yes (Renal insufficiency.) Immune Disorder: No Implanted Vascular Access Dvce: No Musculoskeletal: Yes (History of Generalized weakness, History of falls.) Neurologic: Yes (Dementia, Multiple Sclerosis.) Psychiatric: Yes Reproductive: No Respiratory: Yes (HX :Smokes) Immunizations Current: No Tetanus Vaccination: Unknown Menopausal: Yes : 3 Para: 3 Past Surgical History Surgical History: Unable to Obtain Appendectomy: Yes Other Surgery: Yes (Appendectomy.) Social History Alcohol Use: No Tobacco Use: No (OCC. WHEN SHE CAN GET THEM) Substance Use: No Allergies-Medications (Allergen,Severity, Reaction): Coded Allergies: Aricept (Verified Allergy, Severe, 07/12/16) Nonsteroidal Anti-Inflammatory Agts (Verified Allergy, Unknown, 07/12/16) Comments List of her allergies reviewed from the nursing note. Reported Meds & Prescriptions Reported Meds & Active Scripts Active Reported K-Tab (Potassium Chloride) 20 Meq Tab 20 Meq PO DAILY Lasix (Furosemide) 20 Mg Tab 20 Mg PO BID Ferrous Sulfate 325 Mg Tab 325 Mg PO BID Poly-Iron 150 Forte (Iron Polysaccharide [id number]) 150-25MG-1 Mcg Cap 1 Cap PO DAILY Levothyroxine (Levothyroxine Sodium) 25 Mcg Tab 25 Mcg PO DAILY Galantamine (Galantamine Hydrobromide) 12 Mg Tab 12 Mg PO BID Narrative Medication List of her home medications reviewed from the nursing note. Review of Systems Except as stated in HPI: all other systems reviewed are Neg Physical Exam Narrative GENERAL: Awake, alert, elderly, no obvious distress, dementia SKIN: Focused skin assessment warm/dry. HEAD: Atraumatic. Normocephalic. EYES: Pupils equal and round. No scleral icterus. No injection or drainage. ENT: No nasal bleeding or discharge. Mucous membranes pink and moist. NECK: Trachea midline. No JVD. CARDIOVASCULAR: Regular rate and rhythm. No murmur appreciated. RESPIRATORY: No accessory muscle use. Clear to auscultation. Breath sounds equal bilaterally. GASTROINTESTINAL: Abdomen soft, non-tender, nondistended. Hepatic and splenic margins not palpable. MUSCULOSKELETAL: No obvious deformities. No clubbing. No cyanosis. No edema. NEUROLOGICAL: Awake and alert. Dementia. No obvious cranial nerve deficits. Motor grossly within normal limits. Normal speech. PSYCHIATRIC: Appropriate mood and affect; insight and judgment normal. Data Data Last Documented VS Vital Signs Date Time Temp Pulse Resp B/P Pulse Ox O2 Delivery O2 Flow Rate FiO2 07/12/16 20:16 97 Room Air 07/12/16 19:17 97.6 78 20 112/53 Orders Complete Blood Count With Diff (07/12/16 19:50) Comprehensive Metabolic Panel (07/12/16 19:50) Lipase (07/12/16 19:50) Urinalysis - C+S If Indicated (07/12/16 19:50) Ct Abd/Pel W/O Iv Contrast (07/12/16 19:50) Iv Access Insert/Monitor (07/12/16 19:50) Ecg Monitoring (07/12/16 19:50) Oximetry (07/12/16 19:50) Sodium Chlor 0.9% 1000 Ml Inj (Ns 1000 M (07/12/16 19:50) Sodium Chloride 0.9% Flush (Ns Flush) (07/12/16 20:00) Labs Laboratory Tests Test 07/12/16 07/12/16 20:15 20:45 White Blood Count 8.3 TH/MM3 Red Blood Count 4.18 MIL/MM3 Hemoglobin 10.1 GM/DL Hematocrit 31.2 % Mean Corpuscular Volume 74.6 FL Mean Corpuscular Hemoglobin 24.1 PG Mean Corpuscular Hemoglobin 32.4 % Concent Red Cell Distribution Width 22.6 % Platelet Count 339 TH/MM3 Mean Platelet Volume 7.8 FL Neutrophils (%) (Auto) 61.0 % Lymphocytes (%) (Auto) 25.6 % Monocytes (%) (Auto) 9.8 % Eosinophils (%) (Auto) 3.0 % Basophils (%) (Auto) 0.6 % Neutrophils # (Auto) 5.0 TH/MM3 Lymphocytes # (Auto) 2.1 TH/MM3 Monocytes # (Auto) 0.8 TH/MM3 Eosinophils # (Auto) 0.2 TH/MM3 Basophils # (Auto) 0.0 TH/MM3 CBC Comment AUTO DIFF Differential Comment AUTO DIFF CONFIRMED Platelet Estimate NORMAL Platelet Morphology Comment NORMAL Ovalocytes 1+ [place] Cells 1+ Keratocytes OCC Sodium Level 139 MEQ/L Potassium Level 5.2 MEQ/L Chloride Level 106 MEQ/L Carbon Dioxide Level 25.1 MEQ/L Anion Gap 8 MEQ/L Blood Urea Nitrogen 27 MG/DL Creatinine 1.19 MG/DL Estimat Glomerular Filtration 43 ML/MIN Rate Random Glucose 97 MG/DL Calcium Level 7.9 MG/DL Total Bilirubin 0.3 MG/DL Aspartate Amino Transf 40 U/L (AST/SGOT) Alanine Aminotransferase 21 U/L (ALT/SGPT) Alkaline Phosphatase 86 U/L Total Protein 6.9 GM/DL Albumin 2.6 GM/DL Lipase 345 U/L Urine Color LIGHT-YELLOW Urine Turbidity HAZY Urine pH 6.0 Urine Specific Garber 1.009 Urine Protein NEG mg/dL Urine Glucose (UA) NEG mg/dL Urine Ketones NEG mg/dL Urine Occult Blood NEG Urine Nitrite NEG Urine Bilirubin NEG Urine Urobilinogen LESS THAN 2.0 MG/DL Urine Leukocyte Esterase NEG Urine RBC LESS THAN 1 /hpf Urine WBC 1 /hpf Urine Squamous Epithelial 13 /hpf Cells Urine Bacteria RARE /hpf Urine Hyaline Casts 5 /lpf Urine Mucus FEW /lpf Microscopic Urinalysis Comment CULT NOT INDICATED MDM Medical Decision Making Medical Screen Exam Complete: Yes Emergency Medical Condition: Yes Medical Record Reviewed: Yes Differential Diagnosis Acute diverticulitis, abdominal pain NOS, UTI Narrative Course 8:38 PM CAT scan report was back and within normal limits. Awaiting for the labs to come back 9:27 PM all the test results of back and within normal limit. I'll discharge her home. Procedures EKG Prior to Arrival: No Diagnosis Primary Impression: Dementia Qualified Code: F03.90 - Dementia without behavioral disturbance, unspecified dementia type Additional Impression: Abdominal pain, unspecified site Referrals: Primary Care Physician 3 days Additional Instructions: Follow-up with primary care. Disposition: 01 DISCHARGE HOME Condition: Stable Brett James MD Jul 12, 2016 19:32 Brett James MD Jul 12, 2016 19:32
[2016-07-12] MEDS ORDERED: SODIUM CHLOR 0.9% 1000 ML INJ 1,000 ML IV SCH (19:50)
[2016-07-12] MEDS ORDERED: SODIUM CHLORIDE 0.9% FLUSH 10 ML FLUSH IV FLUSH PRN (20:00)
[2016-07-12 20:16] VITALS: O2SAT 97
--- NOTE | 2016-07-12 20:23 | RADRPT ---
EXAM DATE/TIME: 07/12/2016 20:04 [facility] COMPARISON: No previous studies available for comparison. INDICATIONS : Left lower abdomen pain today. ORAL CONTRAST: No oral contrast ingested. RADIATION DOSE: 9.69 CTDIvol (mGy) MEDICAL HISTORY : Dementia. SURGICAL HISTORY : Appendectomy. ENCOUNTER: Initial ACUITY: 1 day PAIN SCALE: 6/10 LOCATION: Left lower quadrant TECHNIQUE: Volumetric scanning of the abdomen and pelvis was performed. Using automated exposure control and ad justment of the mA and/or kV according to patient size, radiation dose was kept as low as reasonably achievable to obtain optimal diagnostic quality images. FINDINGS: LOWER LUNGS: The visualized lower lungs are clear. LIVER: Homogeneous density without lesion for noncontrast technique. There is no dilation of the biliary tr ee. The gallbladder is contracted, no calcified gallstones. SPLEEN: Normal size without lesion. PANCREAS: Within normal limits. KIDNEYS: Normal in size and shape. There is no mass, stone, or hydronephrosis. ADRENAL GLANDS: Within normal limits. VASCULAR: There is no aortic aneurysm. BOWEL/MESENTERY: The stomach, small bowel, and colon demonstrate no acute abnormality. There is no free intraperitone al air or fluid. ABDOMINAL WALL: There is mild bulging of the midline mid and lower abdominal wall without focal hernia. RETROPERITONEUM: There is no lymphadenopathy. BLADDER: No wall thickening or mass. REPRODUCTIVE: Within normal limits. INGUINAL: There is no lymphadenopathy or hernia. MUSCULOSKELETAL: Moderate degenerative changes and vacuum phenomenon in the lumbar spine with associated left lumbar c urvature. CONCLUSION: No acute findings. No dilated loops of small or bowel. Bala Mireles MD on July 12, 2016 at 20:18 Board Certified Radiologist. This report was verified electronically.
[2016-07-12 20:27] LABS: BASOPHIL % 0.6 % (0.0-2.0); EOSINOPHIL # 0.2 TH/MM3 (0-0.4); HEMATOCRIT 31.2 % (35.0-46.0); LYMPH % 25.6 % (9.0-44.0); LYMPHOCYTE # 2.1 TH/MM3 (1.0-4.8); MEAN CELL VOLUME 74.6 FL (80.0-100.0); MEAN CORPUSCULAR HEMOGLOBIN 24.1 PG (27.0-34.0); MEAN CORPUSCULAR HGB CONC 32.4 % (32.0-36.0); MONO % 9.8 % (0.0-8.0); PLATELET COUNT 339 TH/MM3 (150-450); RED BLOOD COUNT 4.18 MIL/MM3 (4.00-5.30); RED CELL DISTRIBUTION WIDTH 22.6 % (11.6-17.2); WHITE BLOOD COUNT 8.3 TH/MM3 (4.0-11.0)
[2016-07-12 20:48] LABS: HEMO FLAGS AUTO DIFF
[2016-07-12 20:55] LABS: ALKALINE PHOSPHATASE 86 U/L (45-117); ALT (GPT) 21 U/L (10-53); ANION GAP 8 MEQ/L (5-15); AST (GOT) 40 U/L (15-37); BICARBONATE 25.1 MEQ/L (21.0-32.0); BLOOD UREA NITROGEN 27 MG/DL (7-18); CHLORIDE 106 MEQ/L (98-107); GLOMERULAR FILTRATION RATE 43 ML/MIN (>89); SODIUM (NA) 139 MEQ/L (136-145); TOTAL BILIRUBIN ADULT 0.3 MG/DL (0.2-1.0)
[2016-07-12 20:56] LABS: POTASSIUM 5.2 MEQ/L (3.5-5.1)
[2016-07-12 21:04] LABS: BURR CELLS 1+ (NORMAL); OVALOCYTES 1+ (NORMAL)
[2016-07-12 21:05] LABS: KERATOCYTES OCC (NORMAL); PLATELET ESTIMATE SMEAR NORMAL (NORMAL); PLATELET MORPHOLOGY NORMAL (NORMAL); SCAN/DIFF AUTO DIFF CONFIRMED
[2016-07-12 21:25] LABS: BACTERIA, URINE RARE /hpf; BLOOD, URINE NEG (NEG); COMMENT (UR) CULT NOT INDICATED; CULTURE IF INDICATED CULT NOT INDICATED; GLUCOSE,URINE NEG (NEG); HYALINE CAST, URINE 5 /lpf (RARE); KETONE, URINE NEG (NEG); MUCUS URINE FEW /lpf (OCC); NITRITE,URINE NEG (NEG); SQUAMOUS EPITHELIAL CELL URINE 13 /hpf (0-5); URINE COLOR LIGHT-YELLOW (YELLW/STRAW)
== END 2016-07-13 08:08 | disposition home or self-care (01) ==
LOC: NEPA 19:01
DX: F02.80 Dementia in other diseases classified elsewhere, unspecified severity, without behavioral disturbance, psychotic disturbance, mood disturbance, and anxiety (principal); R10.9 Unspecified abdominal pain; F32.9 Major depressive disorder, single episode, unspecified; I50.9 Heart failure, unspecified
CPT/HCPCS: 74176; 80053; 81001; 83690; 85025; 96360; 99284; J7030

== ENCOUNTER 2016-08-01 15:47 | Emergency (ER) | payer MEDICARE, OTHER ==
[~2016-08-01] VITALS: Ht 157.5 cm; Wt 54.0 kg
[2016-08-01 15:53] VITALS: BP 136/72; PULSE 88; RESP 16; TEMP 97.5; O2SAT 97
[2016-08-01 16:07] VITALS: BP 144/62; PULSE 81; RESP 18; O2SAT 95
--- NOTE | 2016-08-01 16:20 | PD ---
HPI Chief Complaint: Fall Time Seen by Provider: 16:06 Travel History International Travel<30 days: No Contact w/Intl Traveler<30days: No Traveled to known affect area: No History of Present Illness HPI This 85-year-old female is brought for evaluation of head injury. She has a history of dementia. She walks with a walker. She was at her assisted living facility today and fell backwards and hit her head. We don't think there was a loss of consciousness but we do not have a witness. She has been able to get up with assistance and has been ambulatory since the fall. She is not on blood thinners [facility] Past Medical History Hx Anticoagulant Therapy: No Alzheimer's Disease: Yes Blood Disorders: No Anxiety: No Depression: Yes Cancer: No Cardiovascular Problems: Yes (CHF) Congestive Heart Failure: Yes Dementia: Yes Diabetes: No Diminished Hearing: No Endocrine: No Genitourinary: Yes (Renal insufficiency.) Immune Disorder: No Implanted Vascular Access Dvce: No Musculoskeletal: Yes (History of Generalized weakness, History of falls.) Neurologic: Yes (Dementia, Multiple Sclerosis.) Psychiatric: Yes Reproductive: No Respiratory: No Immunizations Current: No ?: Not Menopausal: Yes : 3 Para: 3 Past Surgical History Appendectomy: Yes Other Surgery: Yes (Appendectomy.) Social History Alcohol Use: No Tobacco Use: No (OCC. WHEN SHE CAN GET THEM) Substance Use: No Allergies-Medications (Allergen,Severity, Reaction): Coded Allergies: Aricept (Verified Allergy, Severe, 08/01/16) Nonsteroidal Anti-Inflammatory Agts (Verified Allergy, Unknown, 08/01/16) Reported Meds & Prescriptions Reported Meds & Active Scripts Active Reported K-Tab (Potassium Chloride) 20 Meq Tab 20 Meq PO DAILY Lasix (Furosemide) 20 Mg Tab 20 Mg PO BID Ferrous Sulfate 325 Mg Tab 325 Mg PO BID Poly-Iron 150 Forte (Iron Polysaccharide [id number]) 150-25MG-1 Mcg Cap 1 Cap PO DAILY Levothyroxine (Levothyroxine Sodium) 25 Mcg Tab 25 Mcg PO DAILY Galantamine (Galantamine Hydrobromide) 12 Mg Tab 12 Mg PO BID Review of Systems General / Constitutional: No: Fever, Chills Eyes: No: Diploplia HENT: No: Headaches, Vertigo Cardiovascular: No: Chest Pain or Discomfort, Palpitations Respiratory: No: Cough Gastrointestinal: No: Nausea, Vomiting Genitourinary: No: Urgency, Frequency Musculoskeletal: No: Myalgias Skin: No Rash Physical Exam Narrative GENERAL: Well-developed female SKIN: Focused skin assessment warm/dry. HEAD: There is a 1.5 cm laceration in the occipital portion of the scalp. It is quite superficial and the edges are well opposed and is not actively bleeding Normocephalic. EYES: Pupils equal and round. No scleral icterus. No injection or drainage. ENT: No nasal bleeding or discharge. Mucous membranes pink and moist. There is no tenderness of the neck in the midline NECK: Trachea midline. No JVD. CARDIOVASCULAR: Regular rate and rhythm. No murmur appreciated. RESPIRATORY: No accessory muscle use. Clear to auscultation. Breath sounds equal bilaterally. GASTROINTESTINAL: Abdomen soft, non-tender, nondistended. Hepatic and splenic margins not palpable. MUSCULOSKELETAL: No obvious deformities. No clubbing. No cyanosis. No edema. NEUROLOGICAL: Awake and alert. No obvious cranial nerve deficits. Motor grossly within normal limits. Normal speech. PSYCHIATRIC: Patient is confused but very pleasant and cooperative Data Data Last Documented VS Vital Signs Date Time Temp Pulse Resp B/P Pulse Ox O2 Delivery O2 Flow Rate FiO2 08/01/16 16:07 81 18 144/62 95 Room Air 08/01/16 15:[address] Brain W/O Iv Contrast(Rout) (08/01/16 16:12) [facility] Medical Decision Making Medical Screen Exam Complete: Yes Emergency Medical Condition: Yes Medical Record Reviewed: Yes Differential Diagnosis Differential includes scalp laceration, contusion, intracerebral hemorrhage Narrative Course Cervical spine was cleared by nexus criteria. CT scan of the head is read as negative. This wound is not deep and the edges are well opposed. I think it would heal well without sutures Diagnosis Primary Impression: Contusion of head Qualified Code: S00.03XA - Contusion of scalp, initial encounter Disposition: DISCHARGE HOME Condition: Stable Rudy Mills MD Aug 01, 2016 16:20
--- NOTE | 2016-08-01 16:38 | RADHPO ---
EXAM DATE/TIME: 08/01/2016 16:23 [facility] COMPARISON: CT BRAIN W/O CONTRAST, June 10, 2016, 15:43. INDICATIONS : Trauma. Fall. Laceration to back of head. RADIATION DOSE: 41.56 CTDIvol (mGy) MEDICAL HISTORY : Alzheimer's Congestive heart failure. Multiple sclerosis.Renal insufficiency. SURGICAL HISTORY : Appendectomy. ENCOUNTER: Initial ACUITY: 1 day PAIN SCALE: 0/10 LOCATION: cranial TECHNIQUE: Multiple contiguous axial images were obtained of the head. Using automated exposure control and adj ustment of the mA and/or kV according to patient size, radiation dose was kept as low as reasonably a chievable to obtain optimal diagnostic quality images. FINDINGS: There is no evidence for intracranial hemorrhage, mass effect, mass lesions, or edema. The visualize d bony structures appear intact. Significant degree of brain atrophy is seen. Moderate to severe per iventricular white matter changes are seen nonspecific mostly consistent with chronic small vessel is chemic changes. There are no signs of acute infarction for technique. There is mild mucoperiosteal t hickening within the sphenoid sinuses. CONCLUSION: Chronic and small vessel ischemic changes without any evidence for acute hemorrhage o r mass effect. Wilver Hernandez MD on August 01, 2016 at 16:35 Board Certified Radiologist. This report was verified electronically.
== END 2016-08-01 17:09 | disposition home or self-care (01) ==
LOC: PHED 15:47
DX: S00.03XA Contusion of scalp, initial encounter (principal); G30.9 Alzheimer's disease, unspecified; F02.80 Dementia in other diseases classified elsewhere, unspecified severity, without behavioral disturbance, psychotic disturbance, mood disturbance, and anxiety; Z72.0 Tobacco use; Z86.59 Personal history of other mental and behavioral disorders; Z86.79 Personal history of other diseases of the circulatory system; Z87.448 Personal history of other diseases of urinary system; Z87.39 Personal history of other diseases of the musculoskeletal system and connective tissue; Z86.69 Personal history of other diseases of the nervous system and sense organs; W18.39XA Other fall on same level, initial encounter; Y92.129 Unspecified place in nursing home as the place of occurrence of the external cause
CPT/HCPCS: 70450

== ENCOUNTER 2016-09-24 13:00 | Observation (INO) | payer MEDICARE, OTHER ==
[~2016-09-24] VITALS: Ht 162.6 cm; Wt 70.0 kg
[2016-09-24 13:16] VITALS: PULSE 62; RESP 16; TEMP 97.9; O2SAT 97
[2016-09-24 13:22] VITALS: BP 115/65; PULSE 66; RESP 18; TEMP 97.9; O2SAT 96
[2016-09-24] MEDS ORDERED: SODIUM CHLOR 0.9% 1000 ML INJ 1,000 ML IV SCH (13:36)
[2016-09-24] MEDS ORDERED: SODIUM CHLORIDE 0.9% FLUSH 5 ML FLUSH IV FLUSH PRN (13:45)
[2016-09-24 14:10] LABS: AUTOMATED NEUTROPHIL # 5.8 TH/MM3 (1.8-7.7); BASOPHIL # 0.1 TH/MM3 (0-0.2); BASOPHIL % 0.7 % (0.0-2.0); EOSINOPHIL # 0.3 TH/MM3 (0-0.4); EOSINOPHIL % 2.9 % (0.0-4.0); HEMO FLAGS DIFF FINAL; LYMPH % 27.5 % (9.0-44.0); LYMPHOCYTE # 2.6 TH/MM3 (1.0-4.8); MEAN CELL VOLUME 80.2 FL (80.0-100.0); MEAN CORPUSCULAR HEMOGLOBIN 26.2 PG (27.0-34.0); MEAN CORPUSCULAR HGB CONC 32.7 % (32.0-36.0); MONO % 8.4 % (0.0-8.0); NEUT % 60.5 % (16.0-70.0); PLATELET COUNT 388 TH/MM3 (150-450); RED BLOOD COUNT 4.37 MIL/MM3 (4.00-5.30); RED CELL DISTRIBUTION WIDTH 20.9 % (11.6-17.2); WHITE BLOOD COUNT 9.6 TH/MM3 (4.0-11.0)
[2016-09-24 14:11] LABS: BLOOD, URINE NEG (NEG); GLUCOSE,URINE NEG (NEG); HYALINE CAST, URINE 1 /lpf (RARE); KETONE, URINE NEG (NEG); NITRITE,URINE NEG (NEG); URINE COLOR LIGHT-YELLOW (YELLW/STRAW)
[2016-09-24 14:12] LABS: COMMENT (UR) CATH-CULT NOT IND; CULTURE IF INDICATED CATH CULTURE NOT IND
--- NOTE | 2016-09-24 14:22 | PD ---
HPI Chief Complaint: Altered Mental Status Time Seen by Provider: 13:15 Travel History International Travel<30 days: No Contact w/Intl Traveler<30days: No Traveled to known affect area: No History of Present Illness HPI The patient is a 85-year-old female who presents to the emergency department from the assisted living facility for dementia with change in mental status. According to the family members and EMS the patient is normally verbal and jovial, however, today was nonverbal. The family stated he received a call that the patient was nonresponsive, however, when they arrived to the emergency department the patient would respond to questions with shaking her head yes or no, however, would not give a verbal answer. The patient does have a history of dementia. She will shake her head yes or no to questions, but will not verbalize what her complaint is. The patient was noted to be tearful upon questioning but refuses to answer any questions. No further information is obtainable from the patient. Some of the history was obtained from the son and [id number] bedside. PFSH Past Medical History Hx Anticoagulant Therapy: No Alzheimer's Disease: Yes Blood Disorders: No Anxiety: No Depression: Yes Cancer: No Cardiovascular Problems: Yes (CHF) Congestive Heart Failure: Yes Dementia: Yes Diabetes: No Diminished Hearing: No Endocrine: No Genitourinary: Yes (Renal insufficiency.) Hypertension: Yes Immune Disorder: No Implanted Vascular Access Dvce: No Musculoskeletal: Yes (History of Generalized weakness, History of falls.) Neurologic: Yes (Dementia, Multiple Sclerosis.) Psychiatric: Yes Reproductive: No Respiratory: No Immunizations Current: No ?: Not Menopausal: Yes : 3 Para: 3 Past Surgical History Appendectomy: Yes Social History Alcohol Use: Yes (MONTHLY) Tobacco Use: Yes (OCC. WHEN SHE CAN GET THEM) Substance Use: No Allergies-Medications (Allergen,Severity, Reaction): Coded Allergies: Aricept (Verified Allergy, Severe, 09/24/16) Nonsteroidal Anti-Inflammatory Agts (Verified Allergy, Unknown, 09/24/16) Reported Meds & Prescriptions Reported Meds & Active Scripts Active Reported K-Tab (Potassium Chloride) 20 Meq Tab 20 Meq PO DAILY Lasix (Furosemide) 20 Mg Tab 20 Mg PO BID Ferrous Sulfate 325 Mg Tab 325 Mg PO BID Poly-Iron 150 Forte (Iron Polysaccharide [id number]) 150-25MG-1 Mcg Cap 1 Cap PO DAILY Levothyroxine (Levothyroxine Sodium) 25 Mcg Tab 25 Mcg PO DAILY Galantamine (Galantamine Hydrobromide) 12 Mg Tab 12 Mg PO BID Review of Systems ROS Limitations: Clinical Condition, Altered Mental Status, Poor Historian Except as stated in HPI: all other systems reviewed are Neg Neurologic: Positive: Change in Mentation, Slurred Speech (currently nonverbal) Physical Exam Narrative GENERAL: Awake, alert, 85-year-old female who will look at me during questioning and shake her head yes or no, but is nonverbal. SKIN: Focused skin assessment warm/dry. HEAD: Atraumatic. Normocephalic. EYES: Pupils equal and round. 3 mm bilateral and reactive. ENT: No nasal bleeding or discharge. Mucous membranes pink and moist. NECK: Trachea midline. No JVD. CARDIOVASCULAR: Regular rate and rhythm. No murmur appreciated. RESPIRATORY: No accessory muscle use. Clear to auscultation. Breath sounds equal bilaterally. GASTROINTESTINAL: Abdomen soft, non-tender, nondistended. No rebound tenderness. MUSCULOSKELETAL: No obvious deformities. No clubbing. No cyanosis. No edema. NEUROLOGICAL: Awake and alert. Will shake her head yes and no to questions, but is nonverbal. PSYCHIATRIC: Appears tearful. Data Data Last Documented VS Vital Signs Date Time Temp Pulse Resp B/P Pulse Ox O2 Delivery O2 Flow Rate FiO2 09/24/16 13:22 97.9 66 18 115/65 96 Room Air Orders Electrocardiogram (09/24/16 13:36) Complete Blood Count With Diff (09/24/16 13:36) Comprehensive Metabolic Panel (09/24/16 13:36) Creatine Kinase (Cpk) (09/24/16 13:36) Prothrombin Time / Inr (Pt) (09/24/16 13:36) Act Partial Throm Time (Ptt) (09/24/16 13:36) Troponin I (09/24/16 13:36) Thyroid Stimulating Hormone (09/24/16 13:36) Urinalysis - C+S If Indicated (09/24/16 13:36) Chest, Single Ap (09/24/16 13:36) Ct Brain W/O Iv Contrast(Rout) (09/24/16 13:36) Blood Glucose (09/24/16 13:36) Ecg Monitoring (09/24/16 13:36) Iv Access Insert/Monitor (09/24/16 13:36) Cath For Specimen (09/24/16 13:36) Oximetry (09/24/16 13:36) Sodium Chloride 0.9% Flush (Ns Flush) (09/24/16 13:45) Sodium Chlor 0.9% 1000 Ml Inj (Ns 1000 M (09/24/16 13:36) Sodium Chlorid 0.9% 500 Ml Inj (Ns 500 M (09/24/16 15:00) Free T3 (09/24/16 15:21) Free Thyroxine (T4) (09/24/16 15:21) Diet Npo (09/24/16 Dinner) Vital Signs (Adult) MARLINE.Q4H (09/24/16 15:44) Sodium Chlor 0.9% 1000 Ml Inj (Ns 1000 M (09/24/16 15:45) Neuro Checks . ORDERED (09/24/16 15:44) Speech Therapy Consult-Eval/Tx (09/24/16 15:44) Consult Pt Eval & Treat (09/24/16 15:44) Admit Order (Ed Use Only) (09/24/16 15:46) Labs Laboratory Tests Test 09/24/16 09/24/16 13:40 14:00 White Blood Count 9.6 TH/MM3 Red Blood Count 4.37 MIL/MM3 Hemoglobin 11.5 GM/DL Hematocrit 35.0 % Mean Corpuscular Volume 80.2 FL Mean Corpuscular Hemoglobin 26.2 PG Mean Corpuscular Hemoglobin 32.7 % Concent Red Cell Distribution Width 20.9 % Platelet Count 388 TH/MM3 Mean Platelet Volume 8.0 FL Neutrophils (%) (Auto) 60.5 % Lymphocytes (%) (Auto) 27.5 % Monocytes (%) (Auto) 8.4 % Eosinophils (%) (Auto) 2.9 % Basophils (%) (Auto) 0.7 % Neutrophils # (Auto) 5.8 TH/MM3 Lymphocytes # (Auto) 2.6 TH/MM3 Monocytes # (Auto) 0.8 TH/MM3 Eosinophils # (Auto) 0.3 TH/MM3 Basophils # (Auto) 0.1 TH/MM3 CBC Comment DIFF FINAL Differential Comment Prothrombin Time 10.0 SEC Prothromb Time International 0.9 RATIO Ratio Activated Partial 27.4 SEC Thromboplast Time Sodium Level 138 MEQ/L Potassium Level 5.4 MEQ/L Chloride Level 104 MEQ/L Carbon Dioxide Level 28.8 MEQ/L Anion Gap 5 MEQ/L Blood Urea Nitrogen 29 MG/DL Creatinine 1.40 MG/DL Estimat Glomerular Filtration 36 ML/MIN Rate Random Glucose 77 MG/DL Calcium Level 8.9 MG/DL Total Bilirubin 0.3 MG/DL Aspartate Amino Transf 43 U/L (AST/SGOT) Alanine Aminotransferase 24 U/L (ALT/SGPT) Alkaline Phosphatase 90 U/L Total Creatine Kinase 166 U/L Troponin I LESS THAN 0.02 NG/ML Total Protein 7.6 GM/DL Albumin 2.9 GM/DL Thyroid Stimulating Hormone 12.100 uIU/ML 3rd Gen Urine Color LIGHT-YELLOW Urine Turbidity CLEAR Urine pH 6.0 Urine Specific [place] 1.008 Urine Protein NEG mg/dL Urine Glucose (UA) NEG mg/dL Urine Ketones NEG mg/dL Urine Occult Blood NEG Urine Nitrite NEG Urine Bilirubin NEG Urine Urobilinogen LESS THAN 2.0 MG/DL Urine Leukocyte Esterase NEG Urine RBC LESS THAN 1 /hpf Urine WBC LESS THAN 1 /hpf Urine Hyaline Casts 1 /lpf Microscopic Urinalysis Comment CATH-CULT NOT IND MDM Medical Decision Making Medical Screen Exam Complete: Yes Emergency Medical Condition: Yes Medical Record Reviewed: Yes Interpretation(s) EKG reveals normal sinus rhythm with a rate of 71. No ischemic changes or ectopy noted. CT of the head reveals central severe cerebral atrophy. Severe periventricular and subcortical white matter small vessel ischemic changes bilaterally. No acute infarct, acute hemorrhage, mass effect, or extra-axial fluid collection. Differential Diagnosis Differential diagnosis includes subdural hemorrhage, delirium, UTI, hyponatremia , dementia, medication side effect, depression, hypothyroidism. Narrative Course IV was established, labs are drawn and sent, and the patient was placed on cardiac telemetry monitoring and continuous pulse oximetry monitoring. EKG was ordered and interpreted. Catheter UA was sent to lab. Chest x-ray was obtained. CT of the brain was obtained. CT of the brain is negative. Chest x- rays unremarkable. UA is negative. The patient's sodium is within normal limits. She does have mild elevated creatinine, however, do not believe the dehydration as the cause of her aphagia. It appears to be expressive aphasia and she will follow simple commands and does not appear to have a receptive aphasia. As CT is negative for hemorrhage, the patient was administered aspirin. The patient will need speech therapy evaluation and evaluation by neurology. The patient's physician of record at the assisted living facility is Dr. Rome. The patient was reevaluated at 3:15 PM, she is able to say a few words, still not at baseline. She may have an expressive aphasia versus progression of dementia. I do discussion with the son at bedside regarding 23 hour observation and neurology evaluations speech therapy evaluation versus follow up outpatient at the [facility]. The son would prefer 23 hour observation, therefore, the patient be admitted to the hospital. She may benefit from MRI and/or neurology evaluation with speech therapy evaluation. I had a discussion with the patient's son-in-law, Dr. Humphrey Gandhi, at , after discussion it was agreed the patient may benefit from 23 hour observation with speech therapy evaluation and anticoagulation with aspirin alone. He states the patient is a risk factor, therefore, echocardiogram may not be needed as patient would not be a great candidate for Coumadin or novel anticoagulant. We also discussed ultrasound of the carotids, he agreed that no ultrasound of the carotids would be needed as his has power of traffic law attorney would not want the patient to undergo carotid endarterectomy. He did state he thought speech therapy evaluation and maybe neurology consultation regarding anticoagulation with aspirin may be appropriate and beneficial. After discussion it was agreed the patient would be 23 hour observation. Family is comfortable with this plan of care and disposition. Physician Communication Physician Communication [facility] were paged for 23 hour observation. I discussed the patient Dr. Quiñonez who agrees with 23 hour observation. Diagnosis Primary Impression: Expressive aphasia Admitting Information Admitting Physician Requests: Observation Condition: Stable Andrew Ho MD Sep 24, 2016 14:22
[2016-09-24 14:25] LABS: APTT (PATIENT) 27.4 SEC (24.3-30.1); INTERNATIONAL NORMALIZED RATIO 0.9 RATIO
--- NOTE | 2016-09-24 14:29 | RADRPT ---
EXAM DATE/TIME: 09/24/2016 13:41 [facility] COMPARISON: CHEST SINGLE AP, June 10, 2016, 15:43. INDICATIONS : Shortness of breath. MEDICAL HISTORY : Multiple sclerosis. Congestive heart failure. SURGICAL HISTORY : Appendectomy. ENCOUNTER: Initial ACUITY: 1 day PAIN SCORE: Non-responsive. LOCATION: Bilateral chest FINDINGS: Mild linear parenchymal opacities in the left lower lobe. Lungs are otherwise clear. Cardiomediastina l contours are stable. Bony thorax is intact. CONCLUSION: 1. Mild linear left lower lobe airspace opacities, likely atelectasis. Wu Moe MD on September 24, 2016 at 14:25 Board Certified Radiologist. This report was verified electronically.
[2016-09-24 14:43] LABS: ALT (GPT) 24 U/L (10-53); ANION GAP 5 MEQ/L (5-15); AST (GOT) 43 U/L (15-37); BICARBONATE 28.8 MEQ/L (21.0-32.0); BLOOD UREA NITROGEN 29 MG/DL (7-18); CHLORIDE 104 MEQ/L (98-107); GLOMERULAR FILTRATION RATE 36 ML/MIN (>89); SODIUM (NA) 138 MEQ/L (136-145)
[2016-09-24 14:44] LABS: POTASSIUM 5.4 MEQ/L (3.5-5.1)
[2016-09-24] MEDS ORDERED: SODIUM CHLORID 0.9% 500 ML INJ 500 ML IV ONE ×2 (15:00→17:15)
--- NOTE | 2016-09-24 15:06 | RADRPT ---
EXAM DATE/TIME: 09/24/2016 14:38 [facility] COMPARISON: CT BRAIN W/O CONTRAST, August 01, 2016, 16:23. INDICATIONS : Altered mental status. RADIATION DOSE: 32.93 CTDIvol (mGy) MEDICAL HISTORY : Cardiovascular disease. Dementia. Hypertension. SURGICAL HISTORY : Non-responsive. ENCOUNTER: Initial ACUITY: 1 day PAIN SCALE: Non-responsive LOCATION: Cranial TECHNIQUE: Multiple contiguous axial images were obtained of the head. Using automated exposure control and adj ustment of the mA and/or kV according to patient size, radiation dose was kept as low as reasonably a chievable to obtain optimal diagnostic quality images. FINDINGS: Ventriculomegaly is again noted consistent with significant central cerebral atrophy. Severe periven tricular and subcortical white matter small vessel ischemic changes are noted bilaterally. There is n o acute infarct, acute hemorrhage, mass effect or extra-axial fluid collections. The bone windows ar e unremarkable. CONCLUSION: 1. Severe central cerebral atrophy. 2. Severe periventricular and subcortical white matter small vessel ischemic changes bilaterally. 3. No acute infarct, acute hemorrhage, mass effect or extra-axial fluid collections. Washington Pickering MD on September 24, 2016 at 14:58 Board Certified Radiologist. This report was verified electronically.
[2016-09-24 15:11] LABS: ALKALINE PHOSPHATASE 90 U/L (45-117); CREATINE KINASE 166 U/L (26-192); TOTAL BILIRUBIN ADULT 0.3 MG/DL (0.2-1.0)
[2016-09-24] MEDS: SODIUM CHLOR 0.9% 1000 ML INJ 1,000 ML IV SCH (16:58)
--- NOTE | 2016-09-24 17:30 | HHI.HP ---
[facility] Service [facility] Primary Care Physician Thai Rome MD Admission Diagnosis expressive aphasia Diagnoses: (1) Expressive aphasia Diagnosis: Principal Chief Complaint: altered mental status Travel History International Travel<30 Days: No Contact w/Intl Traveler <30 Da: No Traveled to Known Affected Are: No History of Present Illness patient is a 85 y/o female with history of MS and dementia who was brought to ER after she was found nonverbal. the son provided the information. apparently she was at her usual state of health till earlier today when she was found nonverbal. she was sent from memory care unit for further evaluation. at the time of my evaluation she was talking and answering some of of my questions and per the son she was at her baseline. she denies any pain at this time. Review of Systems ROS Limitations: Poor Historian Past Family Social History Past Medical History hypothyroidism MS dementia Reported Medications K-Tab (Potassium Chloride) 20 Meq Tab 20 Meq PO DAILY Lasix (Furosemide) 20 Mg Tab 20 Mg PO BID Ferrous Sulfate 325 Mg Tab 325 Mg PO BID Poly-Iron 150 Forte (Iron Polysaccharide [id number]) 150-25MG-1 Mcg Cap 1 Cap PO DAILY Levothyroxine (Levothyroxine Sodium) 25 Mcg Tab 25 Mcg PO DAILY Galantamine (Galantamine Hydrobromide) 12 Mg Tab 12 Mg PO BID Allergies: Coded Allergies: Aricept (Verified Allergy, Severe, 09/24/16) Nonsteroidal Anti-Inflammatory Agts (Verified Allergy, Unknown, 09/24/16) Active Ordered Medications Current Medications IV Flush 2 ml 2 ml UNSCH PRN IV FLUSH FLUSH AFTER USING IV ACCESS; Start at 13:45 Sodium Chloride 1,000 ml @ 125 mls/hr Q8H IV Last administered on 09/24/16 14 :12; Start 09/24/16 at 13:36; Stop 09/24/16 at 21:35 Sodium Chloride 500 ml @ 500 mls/hr BOLUS ONCE IV Last administered on 15:53; Start 09/24/16 at 15:00; Stop 09/24/16 at 15:59; Status DC Sodium Chloride (NS 1000 ml Inj) 1,000 ml @ 84 mls/hr [id number] IV Last administered on 09/24/16t 16:58; Start 09/24/16 at 15:45 Social History ex-smoker- lives in memory care unit. Physical Exam Vital Signs Vital Signs Date Time Temp Pulse Resp B/P Pulse Ox O2 Delivery O2 Flow Rate FiO2 09/24/16 13:22 97.9 66 18 115/65 96 Room Air 09/24/16 13:22 62 16 96 Room Air 09/24/16 13:16 97.9 62 16 97 Physical Exam GENERAL: This is a well-nourished, well-developed patient, in no apparent distress. SKIN: No rashes, ecchymoses or lesions. Cool and dry. HEAD: Atraumatic. Normocephalic. No temporal or scalp tenderness. EYES: Pupils equal round and reactive. Extraocular motions intact. No scleral icterus. No injection or drainage. ENT: Nose without bleeding, purulent drainage or septal hematoma. Throat without erythema, tonsillar hypertrophy or exudate. Uvula midline. Airway patent. NECK: Trachea midline. No JVD or lymphadenopathy. Supple, nontender, no meningeal signs. CARDIOVASCULAR: Regular rate and rhythm without murmurs, gallops, or rubs. RESPIRATORY: Clear to auscultation. Breath sounds equal bilaterally. No wheezes , rales, or rhonchi. GASTROINTESTINAL: Abdomen soft, non-tender, nondistended. No hepato-splenomegaly , or palpable masses. No guarding. MUSCULOSKELETAL: Extremities without clubbing, cyanosis, or edema. No joint tenderness, effusion, or edema noted. No calf tenderness. Negative Homans sign bilaterally. NEUROLOGICAL: Awake and alert. not oriented to time or place. Laboratory Laboratory Tests Test 09/24/16 09/24/16 13:40 14:00 White Blood Count 9.6 Red Blood Count 4.37 Hemoglobin 11.5 Hematocrit 35.0 Mean Corpuscular Volume 80.2 Mean Corpuscular Hemoglobin 26.2 Mean Corpuscular Hemoglobin 32.7 Concent Red Cell Distribution Width 20.9 Platelet Count 388 Mean Platelet Volume 8.0 Neutrophils (%) (Auto) 60.5 Lymphocytes (%) (Auto) 27.5 Monocytes (%) (Auto) 8.4 Eosinophils (%) (Auto) 2.9 Basophils (%) (Auto) 0.7 Neutrophils # (Auto) 5.8 Lymphocytes # (Auto) 2.6 Monocytes # (Auto) 0.8 Eosinophils # (Auto) 0.3 Basophils # (Auto) 0.1 CBC Comment DIFF FINAL Differential Comment Prothrombin Time 10.0 Prothromb Time International 0.9 Ratio Activated Partial 27.4 Thromboplast Time Sodium Level 138 Potassium Level 5.4 Chloride Level 104 Carbon Dioxide Level 28.8 Anion Gap 5 Blood Urea Nitrogen 29 Creatinine 1.40 Estimat Glomerular Filtration 36 Rate Random Glucose 77 Calcium Level 8.9 Total Bilirubin 0.3 Aspartate Amino Transf 43 (AST/SGOT) Alanine Aminotransferase 24 (ALT/SGPT) Alkaline Phosphatase 90 Total Creatine Kinase 166 Troponin I LESS THAN 0.02 Total Protein 7.6 Albumin 2.9 Thyroid Stimulating Hormone 12.100 3rd Gen Urine Color LIGHT-YELLOW Urine Turbidity CLEAR Urine pH 6.0 Urine Specific [place] 1.008 Urine Protein NEG Urine Glucose (UA) NEG Urine Ketones NEG Urine Occult Blood NEG Urine Nitrite NEG Urine Bilirubin NEG Urine Urobilinogen LESS THAN 2.0 Urine Leukocyte Esterase NEG Urine RBC LESS THAN 1 Urine WBC LESS THAN 1 Urine Hyaline Casts 1 Microscopic Urinalysis Comment CATH-CULT NOT IND Result Diagram: 09/24/16 1340 09/24/16 1340 Imaging Last Impressions Chest X-Ray 09/24/16 1336 Signed Impressions: Service Date/Time: Saturday, September 24, 2016 13:41 - CONCLUSION: 1. Mild linear left lower lobe airspace opacities, likely atelectasis. Wu Moe MD Assessment and Plan Assessment and Plan A/P - possible TIA with history of dementia and MS start aspirin- consult PT/ST- neuro-checks -acute kidney injury with mild hyperkalemia hold potassium supplements- gentle IV hydration and repeat BMP in am -hypothyroidism with elevated TSH; will increase levothyroxine- TSH in 4 weeks. DVT prophylaxis with SCD's. of note the case was d/w ( son-in-law) who did not want any further work-up at this time. DNR status per my discussion with . Discussed Condition With ER physician, the patient, her son and son-in-law. Marcello Quiñonez MD Sep 24, 2016 17:30
[2016-09-24 17:35] VITALS: BP 134/71
[2016-09-24 17:36] VITALS: BP 138/70; PULSE 65; RESP 16; TEMP 97.4; O2SAT 97
[2016-09-24 19:51] VITALS: BP 129/67; PULSE 66; RESP 16; TEMP 98; O2SAT 94
[2016-09-24 23:36] LABS: FREE T3 2.11 PG/ML (2.18-3.98); FREE T4 0.78 NG/DL (0.76-1.46)
[2016-09-25] VITALS: BP 114/64; PULSE 77; RESP 18; TEMP 97.8; O2SAT 98
[2016-09-25] MEDS: SODIUM CHLOR 0.9% 1000 ML INJ 1,000 ML IV SCH (05:45)
[2016-09-25] MEDS ORDERED: LEVOTHYROXINE SODIUM 50 MCG TAB PO SCH (06:00)
[2016-09-25 07:05] VITALS: BP 126/64; PULSE 76; RESP 18; TEMP 97.6; O2SAT 97
[2016-09-25 07:58] VITALS: BP 133/62; PULSE 79; RESP 20; TEMP 97.8; O2SAT 95
[2016-09-25 08:09] LABS: POTASSIUM 4.1 MEQ/L (3.5-5.1)
[2016-09-25] MEDS ORDERED: ASPIRIN 81 MG CHEW TAB CHEW SCH (09:00)
--- NOTE | 2016-09-25 09:45 | HHI.PR ---
Subjective Remarks Follow up for nonverbal episode, possible TIA. The patient is currently awake, alert, oriented to self only. She is very pleasant and cooperative, appears at baseline. She denies any medical complaints including no headache, lightheadedness, dizziness, chest pain, shortness breath, or abdominal complaints. No acute events overnight. Vital signs reviewed and stable. Discussed with speech therapy, patient passed swallow evaluation. Objective Vitals Vital Signs Date Time Temp Pulse Resp B/P Pulse Ox O2 Delivery O2 Flow Rate FiO2 09/25/16 07:58 97.8 79 20 133/62 95 09/25/16 07:05 97.6 76 18 126/64 97 09/25/16 00:00 97.8 77 18 114/64 98 09/24/16 19:51 98.0 66 16 129/67 94 09/24/16 17:36 97.4 65 16 138/70 97 09/24/16 17:35 71 18 134/71 97 09/24/16 13:22 97.9 66 18 115/65 96 Room Air 09/24/16 13:22 62 16 96 Room Air 09/24/16 13:16 97.9 62 16 97 Result Diagram: 09/24/16 1340 09/25/16 0620 Imaging Last Impressions Head CT 09/24/16 133 Signed Impressions: Service Date/Time: Saturday, September 24, 2016 14:38 - CONCLUSION: 1. Severe central cerebral atrophy. 2. Severe periventricular and subcortical white matter small vessel ischemic changes bilaterally. 3. No acute infarct, acute hemorrhage, mass effect or extra-axial fluid collections. Washington Pickering MD Chest X-Ray 09/24/161335 Signed Impressions: Service Date/Time: Saturday, September 24, 2016 13:41 - CONCLUSION: 1. Mild linear left lower lobe airspace opacities, likely atelectasis. Wu Moe MD Objective Remarks GENERAL: Well-nourished, well-developed pleasantly confused elderly female patient in NAD. SKIN: Warm and dry. No rash. HEENT: Normocephalic. Atraumatic.Pupils equal and round.Mucous membranes pink and moist. NECK: Supple. Trachea midline. CARDIOVASCULAR: Regular rate and rhythm. S1, S2 noted. No murmur appreciated. RESPIRATORY: No accessory muscle use. Clear to auscultation. Breath sounds equal bilaterally. GASTROINTESTINAL: Abdomen soft, non-tender, nondistended. Normoactive bowel sounds x4. MUSCULOSKELETAL: No obvious deformities. Extremities without clubbing, cyanosis , or edema. NEUROLOGICAL: Awake and alert. No obvious cranial nerve deficits. Motor grossly within normal limits. 5/5 muscle strength in bilateral upper and lower extremities. Normal speech. PSYCHIATRIC: Appropriate mood and affect; insight and judgment limited. Medications and IVs Current Medications Medications (Trade) Dose Ordered Sig/Karen Route Start Time Stop Time Status Last Admin IV Flush 2 ml 2 ml UNSCH PRN IV FLUSH 09/24/16 13:45 (NS 1000 ml Inj) 1,000 ml @ 84 mls/hr [id number] IV 09/24/16 15:45 09/25/16 05:45 (Aspirin Chew) 81 mg DAILY CHEW 09/25/16 09:00 (Synthroid) 50 mcg DAILY@0600 PO 09/25/16 06:00 09/25/16 05:45 A/P Problem List: (1) Expressive aphasia ICD Code: R47.01 Status: Acute Assessment and Plan 85-year-old female with history of MS, dementia, hypothyroidism, presents from her memory care center after the patient was found nonverbal Expressive Aphasia, Suspect TIA: with history of dementia and MS. UA negative. -Head CT with severe cerebral atrophy and white matter small vessel ischemic changes, no acute findings. -started aspirin 81mg daily -consulted ST, patient passed swallow eval -consult PT -continue neuro-checks -patient back to baseline Acute Kidney Injury with Mild Hyperkalemia: suspect secondary to dehydration and diuretics. Cr 1.4 upon arrival, previously 1.June2016 -hold patient's lasix and potassium supplements -give gentle IV hydration -repeat BMP much improved, Cr 1.14 today -hyperkalemia resolved, K 4.1 Hypothyroidism with Elevated TSH: TSH over 12, with low T3 -increase patient's levothyroxine dose -check TSH as outpatient in 4 weeks. DVT prophylaxis with SCD's. Admitting physician discussed case with (son-in-law) who did not want any further work-up at this time. DNR status Discharge Planning Likely discharge today after evaluation by physical therapy. 1540hrs: Patient evaluated by physical therapy, recommends rehab. Had long discussion with the family and case management, the family would like the patient to go back to her [facility] and continue HHC with PT. Also, the patient does not qualify for rehab at this time with observation admission and the family does not want her staying another 3 nights in the hospital. Case management making arrangements for the patient to return to [facility] with HHC. Discharge patient to [facility] with HHC Condition on discharge: Improved Heart Healthy Diet as tolerated Ad Lina activity Rx written: aspirin 81mg daily, levothyroxine 50mcg daily Follow-up with primary care physician Dr. Rome within 1 week Attending Statement Patient seen in her bedroom, improved 100% as per her two sons at this time in ER, Mr Wynne and Mr. Chavez they want their mother to go to her [facility] refuse going to Rehab facility at this time, will discharge to [facility] as per Sons request, will go on HHC. Mara Loo PA-C Sep 25, 2016 09:45 Jovany Espinal MD Sep 25, 2016 16:20
[2016-09-25 11:41] VITALS: BP 129/59; PULSE 82; RESP 18; TEMP 97.8; O2SAT 95
--- NOTE | 2016-09-25 15:30 | EKG ---
Date Performed: 09/24/2016 Time Performed: 14:55:20 PTAGE: 85 years EKG: Sinus rhythm NORMAL ECG Compared to prior tracing no significant change PREVIOUS TRACING : 06/10/2016 15.26 DOCTOR: Ramon Lopez Interpretating Date/Time 09/25/2016 15:29:17
[2016-09-25] MEDS ORDERED: ASPI81CH25 CHEW (15:44)
[2016-09-25] MEDS ORDERED: LEVO.05 PO (15:44)
--- NOTE | 2016-09-25 15:46 | HHI.FF ---
Face to Face Verification Diagnosis: (1) Expressive aphasia (2) TIA (transient ischemic attack) (3) Dementia (4) ANTONIO (acute kidney injury) Physical Therapy Order: Evaluate and Treat, Improve ambulation, Strength and gait training Home Health Nursing Order: Medical education Signs/symptoms of disease process Nursing assessment with vital signs I have seen patient Miranda Melgoza on 09/25/16. My clinical findings support the need for the requested home health care services because: Ltd mobility - disease progression Deconditioned w/ increased weakness Limited ability to care for self Impaired cognition/judgement High risk of falls I certify that my clinical findings support that this patient is homebound because: Impaired cognitive ability/safety Unsteady gait/balance Unsafe to leave home unassisted Mara Loo PA-C Sep 25, 2016 15:46 Jovany Espinal MD Sep 25, 2016 16:20
[2016-09-25 16:06] VITALS: BP 118/59; PULSE 73; RESP 18; TEMP 97.6; O2SAT 95
== END 2016-09-25 18:02 | disposition short-term general hospital (02) ==
LOC: NEPC 13:00 → NEDA 15:48 → NEPGCP 17:22
PROVIDERS: ADMIT Internal Medicine; ATTEND Internal Medicine
DX: R47.01 Aphasia (principal); N17.9 Acute kidney failure, unspecified; E87.5 Hyperkalemia; E03.9 Hypothyroidism, unspecified; F03.90 Unspecified dementia, unspecified severity, without behavioral disturbance, psychotic disturbance, mood disturbance, and anxiety; G35 Multiple sclerosis; E86.0 Dehydration; I11.0 Hypertensive heart disease with heart failure; I50.9 Heart failure, unspecified; Z66 Do not resuscitate; Z88.8 Allergy status to other drugs, medicaments and biological substances; Z88.6 Allergy status to analgesic agent; Z87.891 Personal history of nicotine dependence
CPT/HCPCS: 70450; 71010; 80048; 80053; 81001; 82550; 84439; 84443; 84481; 84484; 85025; 85610; 85730; 92610; 93005; 96360; 96361; 97162; 99285; G0378; G8987; G8988; G8996; G8997; G8998; J7030; J7040

== ENCOUNTER 2017-05-29 18:00 | Emergency (ER) | payer MEDICARE, OTHER ==
[~2017-05-29 18:00] MED LIST changes: +ASPI81CH25 CHEW; -FURO1TAB62 PO; +LEVO.05 PO; -LEVO25TA4 PO; -POTA1TAB4 PO
[2017-05-29] MEDS ORDERED: SODIUM CHLOR 0.9% 1000 ML INJ 1,000 ML IV ONE (18:11)
--- NOTE | 2017-05-29 18:25 | RADRPT ---
EXAM DATE/TIME: 05/29/2017 18:06 [facility] COMPARISON: CT BRAIN W/O CONTRAST, September 24, 2016, 14:38. INDICATIONS : Stroke alert. Left facial droop. Left arm weakness. RADIATION DOSE: 60.51 CTDIvol (mGy) This report was called by Dr. Calderon to Dr. House at 1821 MEDICAL HISTORY : Cerebrovascular disease. Dementia. SURGICAL HISTORY : Unable to obtain. ENCOUNTER: Initial ACUITY: 1 day PAIN SCALE: 0/10 LOCATION: cranial TECHNIQUE: Multiple contiguous axial images were obtained of the head. Using automated exposure control and adj ustment of the mA and/or kV according to patient size, radiation dose was kept as low as reasonably a chievable to obtain optimal diagnostic quality images. DICOM format image data is available electro nically for review and comparison. FINDINGS: CEREBRUM: Stable ventricular prominence, somewhat out of proportion to the degree of cortical atrophy. 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 No evidence of midline shift, m ass lesion, hemorrhage or acute infarction. No extra-axial fluid collections are seen. POSTERIOR FOSSA: The cerebellum and brainstem are intact. The 4th ventricle is midline. The cerebellopontine angle i s unremarkable. EXTRACRANIAL: The visualized portion of the orbits is intact. SKULL: The calvaria is intact. No evidence of skull fracture. CONCLUSION: 1. Stable chronic changes with severe periventricular small vessel ischemic demyelination. There is a lso ventricular prominence out of proportion to the degree of cortical atrophy. In the appropriate cl inical setting, findings could represent normal pressure hydrocephalus. 2. Nothing acute. Tam Calderon MD on May 29, 2017 at 18:20 Board Certified Radiologist. This report was verified electronically.
[2017-05-29 18:27] VITALS: O2SAT 98
[2017-05-29 18:32] VITALS: BP 140/78; PULSE 77; RESP 18; TEMP 98.1; O2SAT 98
[2017-05-29 18:37] LABS: CHLORIDE 103 MEQ/L (98-107); SODIUM (NA) 137 MEQ/L (136-145)
[2017-05-29 18:40] LABS: CALCIUM 8.2 MG/DL (8.5-10.1); GLUCOSE,RANDOM 90 MG/DL (74-106)
[2017-05-29 18:41] LABS: AUTOMATED NEUTROPHIL # 4.1 TH/MM3 (1.8-7.7); BASOPHIL # 0.1 TH/MM3 (0-0.2); BASOPHIL % 0.7 % (0.0-2.0); BLOOD UREA NITROGEN 27 MG/DL (7-18); EOSINOPHIL # 0.5 TH/MM3 (0-0.4); EOSINOPHIL % 5.9 % (0.0-4.0); HEMATOCRIT 40.4 % (35.0-46.0); HEMOGLOBIN 13.7 GM/DL (11.6-15.3); LYMPH % 30.6 % (9.0-44.0); LYMPHOCYTE # 2.5 TH/MM3 (1.0-4.8); MEAN CELL VOLUME 88.6 FL (80.0-100.0); MEAN CORPUSCULAR HEMOGLOBIN 30.1 PG (27.0-34.0); MEAN PLATELET VOLUME 7.7 FL (7.0-11.0); MONOCYTE # 0.9 TH/MM3 (0-0.9); NEUT % 51.8 % (16.0-70.0); PLATELET COUNT 426 TH/MM3 (150-450); RED BLOOD COUNT 4.56 MIL/MM3 (4.00-5.30); RED CELL DISTRIBUTION WIDTH 14.7 % (11.6-17.2); WHITE BLOOD COUNT 8.1 TH/MM3 (4.0-11.0)
[2017-05-29] MEDS ORDERED: ALPR.5 PO (18:42)
[2017-05-29] MEDS ORDERED: BISA10SU3 RECTAL (18:42)
[2017-05-29] MEDS ORDERED: FERR325T18 PO (18:42)
[2017-05-29] MEDS ORDERED: FURO1TAB62 PO (18:42)
[2017-05-29] MEDS ORDERED: SENN8.6T36 PO (18:42)
[2017-05-29 18:44] LABS: GLOMERULAR FILTRATION RATE 39 ML/MIN (>89)
[2017-05-29 18:48] LABS: TROPONIN I LESS THAN 0.02 NG/ML (0.02-0.05)
--- NOTE | 2017-05-29 19:05 | PD ---
HPI . Stroke alert Chief Complaint: Altered Mental Status Time Seen by Provider: 18:05 Travel History International Travel<30 days: No Contact w/Intl Traveler<30days: No Traveled to known affect area: No History of Present Illness HPI This patient was brought to us as a stroke alert by [facility]. Onset of symptoms was 40 minutes prior to arrival. She comes to us from a alf. The alf reported to [facility] that the patient had an alteration in her level of consciousness and left-sided weakness. No further history is obtainable from the patient. The patient has a daughter who is here and another daughter who is on the phone. They both report that the patient was seen here sometime within the last year with very similar symptoms. She was diagnosed with a TIA. The family reports that they had a discussion following this and elected to make her a DNR/hospitalist patient. They are curious as to how it is at the patient was brought to us today. PFSH Past Medical History Hx Anticoagulant Therapy: No Alzheimer's Disease: Yes Anemia: Yes Asthma: No (unable to obtain) Autoimmune Disease: Yes (VIT D DEF) Blood Disorders: No (unable to obtain) Anxiety: Yes Depression: Yes (unable to obtain) Cancer: No (unable to obtain) Cardiovascular Problems: Yes (CHF) Congestive Heart Failure: Yes Cerebrovascular Accident: Yes (TIA, APHASIA) Dementia: Yes Diabetes: No (unable to obtain) Diminished Hearing: No Endocrine: No (unable to obtain) Genitourinary: Yes (Renal insufficiency.) Hypertension: Yes Immune Disorder: No (unable to obtain) Implanted Vascular Access Dvce: No Medical other: Yes (APHASIA, MS) Musculoskeletal: Yes (History of Generalized weakness, History of falls.) Neurologic: Yes (Dementia, Multiple Sclerosis.) Psychiatric: Yes (unable to obtain) Reproductive: No Respiratory: No (unable to obtain) Immunizations Current: No Tetanus Vaccination: < 5 Years Influenza Vaccination: Yes Menopausal: Yes : 3 Para: 3 Past Surgical History Appendectomy: Yes Body Medical Devices: unable to obtain Other Surgery: Yes (Appendectomy.) Social History Alcohol Use: Yes (MONTHLY) Tobacco Use: Yes (OCC. WHEN SHE CAN GET THEM) Allergies-Medications (Allergen,Severity, Reaction): Coded Allergies: donepezil (Unverified Allergy, Severe, 05/29/17) diclofenac (Unverified Allergy, Unknown, 05/29/17) etodolac (Unverified Allergy, Unknown, 05/29/17) flurbiprofen (Unverified Allergy, Unknown, 05/29/17) ibuprofen (Unverified Allergy, Unknown, 05/29/17) indomethacin (Unverified Allergy, Unknown, 05/29/17) ketoprofen (Unverified Allergy, Unknown, 05/29/17) ketorolac (Unverified Allergy, Unknown, 05/29/17) naproxen (Unverified Allergy, Unknown, 05/29/17) oxaprozin (Unverified Allergy, Unknown, 05/29/17) Reported Meds & Prescriptions Reported Meds & Active Scripts Active Aspirin Low Strength (Aspirin) 81 Mg Chew 81 Mg CHEW DAILY Synthroid (Levothyroxine Sodium) 50 Mcg Tab 50 Mcg PO DAILY@0600 Reported Senna-Tabs (Sennosides) 8.6 Mg Tab 8.6 Mg PO DAILY Lasix (Furosemide) 20 Mg Tab 20 Mg PO DAILY Ferrous Sulfate 325 Mg (65 Mg Iron) Tablet 325 Mg PO BIDPC Bisacodyl Supp (Bisacodyl) 10 Mg Supp 10 Mg RECTAL DAILY PRN Xanax (Alprazolam) 0.5 Mg Tab 0.5 Mg PO DIRECTED PRN Poly-Iron 150 Forte (Iron Polysaccharide [id number]-[id number]) 150-25MG-1 Mcg Cap 1 Cap PO DAILY Galantamine (Galantamine Hydrobromide) 12 Mg Tab 12 Mg PO BID Review of Systems ROS Limitations: Poor Historian Physical Exam Narrative GENERAL: Patient was examined lying on the [facility] stretcher. SKIN: warm/dry. Good color and turgor. HEAD: Normocephalic. Atraumatic. EYES: Pupils equal and round. No scleral icterus. No injection or drainage. ENT: No nasal bleeding or discharge. Mucous membranes pink and moist. NECK: Trachea midline. Full range of motion without pain.. CARDIOVASCULAR: Regular rate and rhythm. RESPIRATORY: No accessory muscle use. Clear to auscultation. Breath sounds equal bilaterally. GASTROINTESTINAL: Abdomen soft. Nontender. Bowel sounds present. Nondistended. MUSCULOSKELETAL: No obvious deformities. NEUROLOGICAL: Awake and alert. No obvious cranial nerve deficits. Follows commands poorly. I'm not sure how valid her neurological exam is because she is not really following commands very well. PSYCHIATRIC: Unable to assess. Data Data Last Documented VS Vital Signs Date Time Temp Pulse Resp B/P (MAP) Pulse Ox O2 Delivery O2 Flow Rate FiO2 05/29/17 20:33 76 18 138/76 (96) 99 05/29/17 19:27 Nasal Cannula 2.00 05/29/17 18:32 98.1 Orders Orders Neuro Checks Q2HX12,Q4H (05/29/17 18:11) Nursing Bedside Swallow Assess .ONCE (05/29/17 18:11) Activity Bed Rest (05/29/17 18:11) Diet Npo (05/29/17 Dinner) Prothrombin Time / Inr (Pt) (05/29/17 18:11) Act Partial Throm Time (Ptt) (05/29/17 18:11) Complete Blood Count With Diff (05/29/17 18:11) Basic Metabolic Panel (Bmp) (05/29/17 18:11) Fibrinogen (05/29/17 18:11) Troponin I (05/29/17 18:11) Ct Brain W/O Iv Contrast(Rout) (05/29/17 ) Electrocardiogram (05/29/17 ) Consult Neurology (05/29/17 18:11) Sodium Chlor 0.9% 1000 Ml Inj (Ns 1000 M (05/29/17 18:11) Ecg Monitoring (05/29/17 18:11) Iv Access Insert/Monitor (05/29/17 18:11) NPO (05/29/17 18:11) Oximetry (05/29/17 18:11) Resp Oxygen Nc Stroke (05/29/17 ) (Hub Use Only)Inp Phy Cons/Ref (05/29/17 ) Code Status (05/29/17 18:29) Ed Discharge Order (05/29/17 19:57) Labs Laboratory Tests Test 05/29/17 18:18 White Blood Count 8.1 TH/MM3 Red Blood Count 4.56 MIL/MM3 Hemoglobin 13.7 GM/DL Hematocrit 40.4 % Mean Corpuscular Volume 88.6 FL Mean Corpuscular Hemoglobin 30.1 PG Mean Corpuscular Hemoglobin Concent 34.0 % Red Cell Distribution Width 14.7 % Platelet Count 426 TH/MM3 Mean Platelet Volume 7.7 FL Neutrophils (%) (Auto) 51.8 % Lymphocytes (%) (Auto) 30.6 % Monocytes (%) (Auto) 11.0 % Eosinophils (%) (Auto) 5.9 % Basophils (%) (Auto) 0.7 % Neutrophils # (Auto) 4.1 TH/MM3 Lymphocytes # (Auto) 2.5 TH/MM3 Monocytes # (Auto) 0.9 TH/MM3 Eosinophils # (Auto) 0.5 TH/MM3 Basophils # (Auto) 0.1 TH/MM3 CBC Comment DIFF FINAL Differential Comment Prothrombin Time 10.0 SEC Prothromb Time International Ratio 1.0 RATIO Activated Partial Thromboplast Time 30.4 SEC Fibrinogen 478 mg/dL Blood Urea Nitrogen 27 MG/DL Creatinine 1.30 MG/DL Random Glucose 90 MG/DL Calcium Level 8.2 MG/DL Sodium Level 137 MEQ/L Potassium Level 4.1 MEQ/L Chloride Level 103 MEQ/L Carbon Dioxide Level 30.0 MEQ/L Anion Gap 4 MEQ/L Estimat Glomerular Filtration Rate 39 ML/MIN Troponin I LESS THAN 0.02 NG/ML MDM Medical Screen Exam Complete: Yes Emergency Medical Condition: Yes Medical Record Reviewed: Yes (patient was admitted here in April 2016 with similar symptoms. Her baseline mental status at that time was noted to be oriented to self only.) EKG Prior to Arrival: No Differential Diagnosis Differential diagnosis includes but is not limited to TIA, CVA, brain tumor, migraine, anxiety Narrative Course This patient presented to us as a stroke alert. She was taken immediately to CT. Last Impressions Head CT 05/29/17 0000 Signed Impressions: Service Date/Time: Monday, May 29, 2017 18:06 - CONCLUSION: 1. Stable chronic changes with severe periventricular small vessel ischemic demyelination. There is also ventricular prominence out of proportion to the degree of cortical atrophy. In the appropriate clinical setting, findings could represent normal pressure hydrocephalus. 2. Nothing acute. Tam Calderon MD I did a modified NIH stroke scale on arrival and got 13. However, we are unsure as to what her underlying status is. Family reports that she is chronically demented and is oriented only to self. I have discussed TPA with Dr. Turcios. Both he and I do not feel that this patient is a candidate for TPA. The family is requesting no heroic measures. CBC & BMP Diagram 05/29/17 18:18 Calcium Level 8.2 L Coags are normal. trop < 0.02 EKG shows a sinus rhythm with no acute ischemic changes. Her hospice nurse is now here. [facility] Critical Care Narrative Aggregate critical care time was 60 minutes. Time to perform other separately billable procedures was not included in the critical care time. My time did not include minutes spent treating any other patients simultaneously or on activities that did not directly contribute to the patient's treatment. The services I provided to this patient were to treat and/or prevent clinically significant deterioration due to stroke alert I provided critical care services requiring my management, as noted below: Chart data review, documentation time, medication orders and management, vital sign assessments/reviewing monitor data, ordering and reviewing lab tests, ordering and interpreting/reviewing x-rays and diagnostic studies, care of the patient and discussion of the patient with the admitting physicians Stroke Alert NIHSS NIH Stroke Scale Result: 13 NIHSS Time Completed: 18:00 Thrombolytic Contraindications Contraindications: Palliative Care Physician Communication Physician Communication Dr. Turcios Diagnosis Diagnosis: Primary Impression: TIA (transient ischemic attack) Qualified Codes: G45.9 - Transient cerebral ischemic attack, unspecified Disposition: 03 DISCHARGE TO SNF Condition: Stable Neela House MD May 29, 2017 19:05
[2017-05-29 19:27] VITALS: BP 155/64; PULSE 66; RESP 18; O2SAT 98
[2017-05-29 20:33] VITALS: BP 138/76
--- NOTE | 2017-05-30 14:27 | EKG ---
Date Performed: 05/29/2017 Time Performed: 18:25:25 PTAGE: 86 years EKG: Sinus rhythm NORMAL ECG Since PREVIOUS TRACING , no significant change noted PREVIOUS TRACIN09/24/2016 14.55 DOCTOR: Ramon Lopez Interpretating Date/Time 05/30/2017 14:26:07
== END 2017-05-29 21:41 ==
LOC: PHED 18:00
DX: G45.9 Transient cerebral ischemic attack, unspecified (principal)
CPT/HCPCS: 70450; 80048; 84484; 85025; 85384; 85610; 85730; 93005; 96360; 99291; J7030